=== PATIENT | male | born 1990 | race African-American/Black ===

== ENCOUNTER 2017-07-28 12:49 | Inpatient (IN) | payer MEDICAID ==
[2017-07-28] VITALS (15 sets, daily range): BP systolic 110–152; BP diastolic 58–106
[~2017-07-28] VITALS: Ht 176.5 cm; Wt 56.8 kg
[~2017-07-28 12:49] MED LIST: INSLAN SQ; INSLIS SQ
[2017-07-28] MEDS ORDERED: LIDOCAINE HCL/PF 1% 2ML VIAL ONE (13:00)
[2017-07-28] MEDS ORDERED: FAMOTIDINE 20MG/2ML VIAL IV STA (13:00)
[2017-07-28] MEDS ORDERED: INSULIN REGULAR (HUMULIN R) UD 100 UNITS/ML SYR IV ONE (13:00)
[2017-07-28] MEDS ORDERED: INSULIN REGULAR (DRIP) 100 UNITS in SODIUM CHLORIDE 0.9% 100 ML IV ONE ×3 (13:00→16:30)
[2017-07-28] MEDS ORDERED: MORPHINE SULFATE 4 MG/ML CPJ (NOT FOR IM USE) IV STA (13:00)
[2017-07-28] MEDS ORDERED: ONDANSETRON HCL 4MG/2ML VIAL IV STA (13:00)
[2017-07-28] MEDS ORDERED: SODIUM CHLORIDE 0.9% 1,000 ML IV ONE ×2 (13:00)
[2017-07-28 13:54] LABS: BG BASE EXCESS -10.7 mmol/L (-2.0-2.0); BG CARBOXYHEMOGLOBIN 0.4 % (0.5-1.5); BG DEOXYHEMOGLOBIN 3.9 % (0.0-5.0); BG HCO3 ACT 15.6 mmol/L (22.0-26.0); BG METHEMOGLOBIN 0.3 % (0.0-1.5); BG OXYGEN SATURATION 96.1 % (92.0-98.5); BG OXYHEMOGLOBIN 95.4 % (94.0-97.0); BG PCO2 36.4 mmHg (35.0-45.0); BG PH 7.249 (7.350-7.450); BG PO2 91.5 mmHg (75.0-100.0); BG SAMPLE SITE RIGHT RADIAL; BG VENT MODE ROOM AIR
[2017-07-28 14:08] LABS: BASOPHILS % 0.5 % (0.0-2.0); EOSINOPHILS % 0.1 % (0.0-5.0); HEMATOCRIT. 53.2 % (42.0-52.0); HEMOGLOBIN. 17.1 g/dL (14.0-18.0); LYMPHOCYTES % 28.6 % (20.0-50.0); MEAN CORPUSCULAR HEMOGLOBIN 24.4 pg (28.0-32.0); MEAN CORPUSCULAR VOLUME 75.8 fL (80.0-94.0); MEAN PLATELET VOLUME 9.7 fl (7.4-10.4); MONOCYTES % 4.2 % (2.0-8.0); NEUTROPHILS % 66.6 % (40.0-76.0); PLATELET 228 x1000/uL (130-400); RED BLOOD CELL COUNT 7.02 mill/uL (4.7-6.1); RED CELL DISTRIBUTION WIDTH 14.3 % (11.6-14.6)
[2017-07-28 14:15] LABS: INR 1.2; PROTHROMBIN TIME 12.5 sec (9.4-11.6)
[2017-07-28] MEDS ORDERED: SODIUM CHLORIDE 0.9% 1,000 ML IV SCH (14:19)
[2017-07-28 14:20] LABS: CARBON DIOXIDE 18 mEq/L (21-32); CHLORIDE 95 mEq/L (98-107)
[2017-07-28 14:27] LABS: ETHANOL BLOOD < 10 mg/dL; TROPONIN I < 0.02 ng/mL (0.00-0.04)
[2017-07-28 14:30] LABS: BETA HYDROXYBUTYRATE 6.9 mMol/L (0.0-0.3)
[2017-07-28] MEDS: INSULIN REGULAR (HUMULIN R) 300UNITS/3ML IV NR ×2 (15:17→15:18)
[2017-07-28] MEDS ORDERED: DEXTROSE 50% WATER 50ML SYRINGE IV PRN ×2 (16:30)
[2017-07-28] MEDS ORDERED: BLOOD SUGAR DIAGNOSTIC STRIP TEST SCH (16:30)
[2017-07-28] MEDS: MORPHINE SULFATE 4 MG/ML CPJ (NOT FOR IM USE) IV PRN ×2 (16:41→20:51)
[2017-07-28] MEDS: SODIUM CHLORIDE 0.9% 1,000 ML IV SCH ×2 (16:41→23:46)
[2017-07-28] MEDS ORDERED: INSULIN REGULAR (DRIP) 100 UNITS in SODIUM CHLORIDE 0.9% 100 ML IV SCH (17:00)
[2017-07-28] MEDS: BLOOD SUGAR DIAGNOSTIC STRIP TEST SCH ×7 (17:01→23:00)
[2017-07-28] MEDS: ONDANSETRON HCL 4MG/2ML VIAL IV PRN (18:44)
[2017-07-28 21:15] LABS: CARBON DIOXIDE 23 mEq/L (21-32); CHLORIDE 106 mEq/L (98-107)
[2017-07-29] VITALS (33 sets, daily range): BP systolic 113–157; BP diastolic 65–104
[2017-07-29] MEDS: ONDANSETRON HCL 4MG/2ML VIAL IV PRN ×3 (00:32→18:05)
[2017-07-29] MEDS: DEXT 5%/0.9% NACL 1,000 ML IV SCH ×2 (01:00→09:18)
[2017-07-29] MEDS: BLOOD SUGAR DIAGNOSTIC STRIP TEST SCH ×13 (01:00→21:17)
[2017-07-29] MEDS: MORPHINE SULFATE 4 MG/ML CPJ (NOT FOR IM USE) IV PRN ×2 (01:17→07:56)
[2017-07-29 02:19] LABS: CHLORIDE 108 mEq/L (98-107)
[2017-07-29 02:25] LABS: CARBON DIOXIDE 25 mEq/L (21-32)
[2017-07-29 07:50] LABS: BASOPHILS % 0.7 % (0.0-2.0); EOSINOPHILS % 0.1 % (0.0-5.0); HEMATOCRIT. 42.2 % (42.0-52.0); LYMPHOCYTES % 26.2 % (20.0-50.0); MEAN CORPUSCULAR HEMOGLOBIN 24.4 pg (28.0-32.0); MEAN CORPUSCULAR VOLUME 73.6 fL (80.0-94.0); MEAN PLATELET VOLUME 9.2 fl (7.4-10.4); MONOCYTES % 9.1 % (2.0-8.0); NEUTROPHILS % 63.9 % (40.0-76.0); PLATELET 225 x1000/uL (130-400); RED BLOOD CELL COUNT 5.73 mill/uL (4.7-6.1); RED CELL DISTRIBUTION WIDTH 14.4 % (11.6-14.6)
[2017-07-29 08:13] LABS: CARBON DIOXIDE 25 mEq/L (21-32); CHLORIDE 109 mEq/L (98-107)
[2017-07-29] MEDS: HYDROMORPHONE HCL/PF 2MG/ML CPJ IV PRN ×4 (10:44→23:37)
[2017-07-29 13:23] LABS: CARBON DIOXIDE 24 mEq/L (21-32); CHLORIDE 106 mEq/L (98-107)
[2017-07-29] MEDS ORDERED: DEXTROSE 50% WATER 50ML SYRINGE IV PRN (15:30)
[2017-07-29] MEDS: SODIUM CHLORIDE 0.9% 1,000 ML IV SCH (16:45)
[2017-07-29] MEDS: ENOXAPARIN 40MG/0.4ML SYR SUBCUT SCH ×2 (17:00→17:53)
[2017-07-29] MEDS: INSULIN LISPRO 100 UNITS/ML SUBCUT SCH ×2 (17:52→21:00)
[2017-07-29] MEDS: METOCLOPRAMIDE HCL 10MG/2ML VIAL IV PRN (21:20)
[2017-07-30] VITALS (24 sets, daily range): BP systolic 98–147; BP diastolic 58–85
[2017-07-30] MEDS: ONDANSETRON HCL 4MG/2ML VIAL IV PRN ×2 (02:14→10:42)
[2017-07-30] MEDS: HYDROMORPHONE HCL/PF 2MG/ML CPJ IV PRN ×5 (03:32→18:52)
[2017-07-30] MEDS: BLOOD SUGAR DIAGNOSTIC STRIP TEST SCH ×4 (05:41→21:34)
[2017-07-30] MEDS: INSULIN LISPRO 100 UNITS/ML SUBCUT SCH ×4 (05:46→21:00)
[2017-07-30] MEDS: METOCLOPRAMIDE HCL 10MG/2ML VIAL IV PRN (05:51)
[2017-07-30] MEDS: SODIUM CHLORIDE 0.9% 1,000 ML IV SCH ×4 (08:45→23:13)
[2017-07-30] MEDS: ENOXAPARIN 40MG/0.4ML SYR SUBCUT SCH ×2 (09:00→10:43)
[2017-07-30] MEDS: PANTOPRAZOLE SODIUM 40 MG/VIAL IV SCH ×2 (10:42→17:02)
[2017-07-30] MEDS: METOCLOPRAMIDE HCL 10MG/2ML VIAL IV SCH ×3 (12:43→23:52)
[2017-07-30] MEDS: INSULIN DETEMIR UD 100 UNITS/ML SYR SUBCUT SCH ×2 (14:15→22:20)
[2017-07-30 15:46] LABS: BASOPHILS % 0.4 % (0.0-2.0); HEMATOCRIT. 37.7 % (42.0-52.0); HEMOGLOBIN. 12.4 g/dL (14.0-18.0); LYMPHOCYTES % 20.2 % (20.0-50.0); MEAN CORPUSCULAR HEMOGLOBIN 24.5 pg (28.0-32.0); MEAN CORPUSCULAR VOLUME 74.5 fL (80.0-94.0); MEAN PLATELET VOLUME 9.3 fl (7.4-10.4); MONOCYTES % 6.6 % (2.0-8.0); NEUTROPHILS % 72.8 % (40.0-76.0); PLATELET 192 x1000/uL (130-400); RED BLOOD CELL COUNT 5.06 mill/uL (4.7-6.1); RED CELL DISTRIBUTION WIDTH 14.5 % (11.6-14.6)
[2017-07-30 15:48] LABS: CHLORIDE 103 mEq/L (98-107)
[2017-07-30 15:58] LABS: CARBON DIOXIDE 22 mEq/L (21-32)
[2017-07-31] VITALS (20 sets, daily range): BP systolic 127–153; BP diastolic 68–100
[2017-07-31] MEDS: HYDROMORPHONE HCL/PF 2MG/ML CPJ IV PRN ×3 (02:54→21:09)
[2017-07-31] MEDS: METOCLOPRAMIDE HCL 10MG/2ML VIAL IV SCH ×4 (05:14→21:08)
[2017-07-31 05:45] LABS: BASOPHILS % 0.5 % (0.0-2.0); EOSINOPHILS % 0.2 % (0.0-5.0); HEMOGLOBIN. 13.1 g/dL (14.0-18.0); LYMPHOCYTES % 39.7 % (20.0-50.0); MEAN CORPUSCULAR HEMOGLOBIN 24.6 pg (28.0-32.0); MEAN CORPUSCULAR VOLUME 72.9 fL (80.0-94.0); MEAN PLATELET VOLUME 9.6 fl (7.4-10.4); NEUTROPHILS % 50.6 % (40.0-76.0); PLATELET 211 x1000/uL (130-400); RED BLOOD CELL COUNT 5.35 mill/uL (4.7-6.1); RED CELL DISTRIBUTION WIDTH 14.6 % (11.6-14.6)
[2017-07-31 06:11] LABS: CARBON DIOXIDE 24 mEq/L (21-32); CHLORIDE 104 mEq/L (98-107)
[2017-07-31] MEDS: BLOOD SUGAR DIAGNOSTIC STRIP TEST SCH ×4 (06:24→21:17)
[2017-07-31] MEDS: INSULIN LISPRO 100 UNITS/ML SUBCUT SCH ×4 (06:25→22:46)
[2017-07-31] MEDS: SODIUM CHLORIDE 0.9% 1,000 ML IV SCH ×2 (06:33→17:19)
[2017-07-31] MEDS: ENOXAPARIN 40MG/0.4ML SYR SUBCUT SCH (08:51)
[2017-07-31] MEDS: PANTOPRAZOLE SODIUM 40 MG/VIAL IV SCH ×2 (08:55→17:13)
[2017-07-31] MEDS: INSULIN DETEMIR UD 100 UNITS/ML SYR SUBCUT SCH (10:00)
[2017-07-31] MEDS ORDERED: HYDROCODONE/ACETAMINOPHEN 5/325MG TABLET PO PRN (10:45)
[2017-07-31] MEDS ORDERED: LACTULOSE 20G/30ML UDC PO PRN (11:15)
[2017-07-31] MEDS: SENNOSIDES/DOCUSATE SOD 8.6/50MG TABLET PO SCH ×2 (11:43→17:13)
[2017-07-31] MEDS ORDERED: POTASSIUM CHLORIDE INJ 40 MEQ in DEXT 5% WATER 500 ML IV NR (12:00)
[2017-08-01] VITALS (7 sets, daily range): BP systolic 126–132; BP diastolic 81–95
[2017-08-01] MEDS: SODIUM CHLORIDE 0.9% 1,000 ML IV SCH ×2 (04:26→08:45)
[2017-08-01] MEDS: HYDROMORPHONE HCL/PF 2MG/ML CPJ IV PRN ×3 (04:27→13:21)
[2017-08-01] MEDS: INSULIN DETEMIR UD 100 UNITS/ML SYR SUBCUT SCH ×2 (04:34→10:06)
[2017-08-01] MEDS: METOCLOPRAMIDE HCL 10MG/2ML VIAL IV SCH ×2 (06:47→13:02)
[2017-08-01] MEDS: BLOOD SUGAR DIAGNOSTIC STRIP TEST SCH ×3 (06:52→17:25)
[2017-08-01] MEDS: INSULIN LISPRO 100 UNITS/ML SUBCUT SCH ×3 (08:38→17:48)
[2017-08-01] MEDS: SENNOSIDES/DOCUSATE SOD 8.6/50MG TABLET PO SCH ×2 (09:00→17:25)
[2017-08-01] MEDS: ENOXAPARIN 40MG/0.4ML SYR SUBCUT SCH (09:00)
[2017-08-01] MEDS: PANTOPRAZOLE SODIUM 40 MG/VIAL IV SCH ×2 (09:08→17:26)
[2017-08-01] MEDS ORDERED: METOCLOPRAMIDE HCL 5MG TABLET PO SCH (17:20)
[2017-08-01 18:52] LABS: CHLORIDE 99 mEq/L (98-107)
[2017-08-01 18:59] LABS: CARBON DIOXIDE 32 mEq/L (21-32)
[2017-09-01] MEDS ORDERED: HYDR-519 PO (16:18)
== END 2017-08-01 20:45 | disposition home or self-care (01) | DRG 420 ==
LOC: ER 13:28 → MICUNO 14:20 → EDBEDREQ 14:25 → EDBEDREQSVC 14:25 → EDBEDREQTM 14:25 → ENRESERV 15:26 → 6EST 07-31 20:35
PROVIDERS: ADMIT Internal Medicine; ATTEND Internal Medicine
DX: E10.10 Type 1 diabetes mellitus with ketoacidosis without coma (principal); K76.0 Fatty (change of) liver, not elsewhere classified; I10 Essential (primary) hypertension; E87.1 Hypo-osmolality and hyponatremia; K59.00 Constipation, unspecified; Z53.9 Procedure and treatment not carried out, unspecified reason; Z82.49 Family history of ischemic heart disease and other diseases of the circulatory system; Z79.4 Long term (current) use of insulin; Z83.3 Family history of diabetes mellitus
CPT/HCPCS: 36415; 36600; 71010; 76700; 80048; 80053; 82010; 82375; 82805; 82962; 83036; 83690; 83735; 83880; 84484; 85025; 85610; 93005; 96374; 96375; 96376; 99285; C9113; G0482; J1170; J1650; J1815; J2270; J2405; J2765; J3480; J3490; J7030; J7042; J7050; J7060; J8597

== ENCOUNTER 2017-08-17 22:54 | Inpatient (IN) | payer MEDICAID, OTHER ==
[~2017-08-17] VITALS: Ht 172.7 cm; Wt 65.8 kg
[2017-08-17] MEDS ORDERED: SODIUM CHLORIDE 0.9% 1,000 ML IV ONE ×3 (23:17)
[2017-08-17] MEDS ORDERED: MORPHINE SULFATE 4 MG/ML CPJ (NOT FOR IM USE) IV STA (23:17)
[2017-08-17] MEDS ORDERED: METOCLOPRAMIDE HCL 10MG/2ML VIAL IV STA (23:17)
[2017-08-17] MEDS ORDERED: ONDANSETRON HCL 4MG/2ML VIAL IV STA (23:17)
[2017-08-17] MEDS ORDERED: INSULIN REGULAR (DRIP) 100 UNITS in SODIUM CHLORIDE 0.9% 99 ML IV SCH (23:30)
[2017-08-17] MEDS ORDERED: MORPHINE SULFATE 10 MG/ML CPJ IV NR (23:30)
[2017-08-17 23:39] LABS: BASOPHILS % 0.8 % (0.0-2.0); EOSINOPHILS % 0.1 % (0.0-5.0); HEMATOCRIT. 44.7 % (42.0-52.0); HEMOGLOBIN. 14.9 g/dL (14.0-18.0); MEAN CORPUSCULAR VOLUME 74.9 fL (80.0-94.0); MEAN PLATELET VOLUME 8.7 fl (7.4-10.4); MONOCYTES % 10.8 % (2.0-8.0); NEUTROPHILS % 55.3 % (40.0-76.0); PLATELET 256 x1000/uL (130-400); RED BLOOD CELL COUNT 5.97 mill/uL (4.7-6.1); RED CELL DISTRIBUTION WIDTH 14.5 % (11.6-14.6)
[2017-08-17 23:50] LABS: CARBON DIOXIDE 24 mEq/L (21-32); CHLORIDE 90 mEq/L (98-107)
[2017-08-18 00:02] LABS: BETA HYDROXYBUTYRATE 5.2 mMol/L (0.0-0.3)
[2017-08-18 00:02] LABS: CLARITY URINE CLEAR (CLEAR); COLOR URINE YELLOW (YELLOW); GLUCOSE URINE 3+ (NEGATIVE); KETONES URINE 3+ (NEGATIVE); LEUKOCYTE ESTERASE URINE NEGATIVE (NEGATIVE); NITRITE URINE NEGATIVE (NEGATIVE); OCCULT BLOOD URINE NEGATIVE (NEGATIVE); PH URINE 5.5 (4.5-8.0); PROTEIN URINE NEGATIVE (NEGATIVE); SPECIFIC GRAVITY URINE 1.032 (1.005-1.030); UROBILINOGEN URINE 0.2 E.U./dL (0.2-1.0)
[2017-08-18 00:14] LABS: BG BASE EXCESS -5.8 mmol/L (-2.0-2.0); BG DEOXYHEMOGLOBIN 2.8 % (0.0-5.0); BG FRACTION INSPIRED OXYGEN 21; BG HCO3 ACT 19.4 mmol/L (22.0-26.0); BG METHEMOGLOBIN 0.1 % (0.0-1.5); BG OXYGEN SATURATION 97.2 % (92.0-98.5); BG OXYHEMOGLOBIN 96.1 % (94.0-97.0); BG PCO2 37.4 mmHg (35.0-45.0); BG PH 7.333 (7.350-7.450); BG PO2 94.9 mmHg (75.0-100.0); BG SAMPLE SITE RIGHT BRACHIAL; BG TOTAL HEMOGLOBIN 14.7 g/dL (12.0-18.0); BG VENT MODE ROOM AIR
[2017-08-18] MEDS ORDERED: DEXTROSE 50% WATER 50ML SYRINGE IV ONE (07:13)
[2017-08-18 09:12] LABS: CARBON DIOXIDE 27 mEq/L (21-32); CHLORIDE 104 mEq/L (98-107)
[2017-08-18 09:29] LABS: BETA HYDROXYBUTYRATE 0.9 mMol/L (0.0-0.3)
[2017-08-18] MEDS ORDERED: HYDROCODONE/ACETAMINOPHEN 5/325MG TABLET PO PRN (12:30)
[2017-08-18] MEDS ORDERED: ACETAMINOPHEN 325MG TABLET PO PRN (12:30)
[2017-08-18] MEDS ORDERED: ONDANSETRON HCL 4MG/2ML VIAL IV PRN (12:30)
[2017-08-18] MEDS ORDERED: CLONIDINE 0.1MG TABLET PO PRN (12:30)
[2017-08-18 12:48] VITALS: BP 134/86
[2017-08-18] MEDS ORDERED: DEXT 5%/0.45% NACL 1000ML 1,000 ML IV SCH (13:11)
[2017-08-18 15:23] VITALS: BP 134/86
[2017-08-18 16:00] VITALS: BP 123/62
[2017-08-18] MEDS ORDERED: INSULIN DETEMIR UD 100 UNITS/ML SYR SUBCUT NR (17:00)
[2017-08-18] MEDS: MORPHINE SULFATE 10 MG/ML CPJ IV PRN ×2 (17:38→21:50)
[2017-08-18] MEDS ORDERED: INSULIN LISPRO 100 UNITS/ML SUBCUT NR (18:30)
[2017-08-18] MEDS ORDERED: DEXTROSE 50% WATER 50ML SYRINGE IV PRN (18:30)
[2017-08-18 20:00] VITALS: BP 120/80
[2017-08-18 20:27] LABS: CHLORIDE 97 mEq/L (98-107)
[2017-08-18 20:32] LABS: CARBON DIOXIDE 23 mEq/L (21-32)
[2017-08-18] MEDS: BLOOD SUGAR DIAGNOSTIC STRIP TEST SCH (21:50)
[2017-08-18] MEDS: INSULIN LISPRO 100 UNITS/ML SUBCUT SCH (21:56)
[2017-08-19] VITALS: BP 121/73
[2017-08-19] MEDS: MORPHINE SULFATE 10 MG/ML CPJ IV PRN ×2 (01:41→06:53)
[2017-08-19 04:00] VITALS: BP 134/92
[2017-08-19] MEDS: BLOOD SUGAR DIAGNOSTIC STRIP TEST SCH ×2 (06:30→12:20)
[2017-08-19 06:44] LABS: BASOPHILS % 0.9 % (0.0-2.0); EOSINOPHILS % 1.6 % (0.0-5.0); HEMATOCRIT. 41.3 % (42.0-52.0); HEMOGLOBIN. 13.9 g/dL (14.0-18.0); LYMPHOCYTES % 39.7 % (20.0-50.0); MEAN CORPUSCULAR HEMOGLOBIN 24.8 pg (28.0-32.0); MEAN CORPUSCULAR VOLUME 73.3 fL (80.0-94.0); MEAN PLATELET VOLUME 8.7 fl (7.4-10.4); MONOCYTES % 8.4 % (2.0-8.0); NEUTROPHILS % 49.4 % (40.0-76.0); PLATELET 279 x1000/uL (130-400); RED BLOOD CELL COUNT 5.63 mill/uL (4.7-6.1); RED CELL DISTRIBUTION WIDTH 14.4 % (11.6-14.6)
[2017-08-19 07:11] LABS: CHLORIDE 96 mEq/L (98-107)
[2017-08-19 07:16] LABS: CARBON DIOXIDE 26 mEq/L (21-32)
[2017-08-19 07:28] VITALS: BP 122/76
[2017-08-19] MEDS: INSULIN LISPRO 100 UNITS/ML SUBCUT SCH ×2 (08:58→13:51)
[2017-08-19] MEDS ORDERED: INSULIN DETEMIR UD 100 UNITS/ML SYR SUBCUT SCH (10:00)
[2017-08-19 13:20] VITALS: BP 125/89
[2017-09-01] MEDS ORDERED: HYDR-519 PO (16:18)
== END 2017-08-19 14:15 | disposition home or self-care (01) | DRG 420 ==
LOC: ER 23:09 → EDBEDREQ 08-18 00:38 → ENRESERV 08-18 09:14 → CANRESERV 08-18 09:14 → EDBEDREQSVC 08-18 09:23 → ENRESERV 08-18 10:20 → 6EST 08-18 11:10 → 6WST 08-18 18:15
PROVIDERS: ADMIT Hospitalist; ATTEND Hospitalist
DX: E11.10 Type 2 diabetes mellitus with ketoacidosis without coma (principal); E87.1 Hypo-osmolality and hyponatremia; Z79.4 Long term (current) use of insulin
CPT/HCPCS: 36415; 36600; 80048; 80053; 81001; 81003; 82010; 82375; 82805; 82962; 83690; 85025; 96361; 96365; 96375; 96376; 99285; J1815; J2270; J2405; J2765; J7030; J7042; J7050; J7070

== ENCOUNTER 2017-09-08 01:19 | Emergency (ER) | payer OTHER ==
[~2017-09-08] VITALS: Ht 175.3 cm; Wt 67.0 kg
[~2017-09-08 01:19] MED LIST changes: +HYDR-519 PO
[2017-09-08] MEDS ORDERED: SODIUM CHLORIDE 0.9% 1,000 ML IV ONE (02:50)
[2017-09-08 03:04] LABS: BASOPHILS % 1.1 % (0.0-2.0); EOSINOPHILS % 0.3 % (0.0-5.0); HEMATOCRIT. 40.4 % (42.0-52.0); HEMOGLOBIN. 13.1 g/dL (14.0-18.0); LYMPHOCYTES % 36.5 % (20.0-50.0); MEAN CORPUSCULAR HEMOGLOBIN 25.6 pg (28.0-32.0); MEAN CORPUSCULAR VOLUME 79.1 fL (80.0-94.0); MEAN PLATELET VOLUME 9.5 fl (7.4-10.4); MONOCYTES % 11.8 % (2.0-8.0); NEUTROPHILS % 50.3 % (40.0-76.0); PLATELET 244 x1000/uL (130-400); RED BLOOD CELL COUNT 5.11 mill/uL (4.7-6.1)
[2017-09-08 03:17] LABS: CARBON DIOXIDE 25 mEq/L (21-32); CHLORIDE 101 mEq/L (98-107); TROPONIN I < 0.02 ng/mL (0.00-0.04)
[2017-09-08] MEDS ORDERED: INSULIN REGULAR (HUMULIN R) 300UNITS/3ML SUBCUT ONE (04:45)
[2017-09-08 05:27] VITALS: BP 128/70
== END 2017-09-08 05:34 | disposition home or self-care (01) ==
LOC: ER 01:20
DX: M94.0 Chondrocostal junction syndrome [Tietze] (principal); F12.10 Cannabis abuse, uncomplicated; E11.9 Type 2 diabetes mellitus without complications; Z79.4 Long term (current) use of insulin
CPT/HCPCS: 36415; 71010; 80053; 82962; 84484; 85025; 85379; 93005; 96360; 96361; 96372; 99285; J1815; J7030; Z7610

== ENCOUNTER 2017-09-13 13:00 | Observation (INO) | payer OTHER ==
[2017-09-13] VITALS (15 sets, daily range): BP systolic 142–173; BP diastolic 91–104
[~2017-09-13] VITALS: Ht 175.3 cm; Wt 58.1 kg
[2017-09-13] MEDS ORDERED: ONDANSETRON HCL 4MG/2ML VIAL IV STA (13:55)
[2017-09-13] MEDS ORDERED: MORPHINE SULFATE 4 MG/ML CPJ (NOT FOR IM USE) IV STA (13:55)
[2017-09-13] MEDS ORDERED: SODIUM CHLORIDE 0.9% 1000ML BAG (SEPSIS BOLUS) IV ONE (14:00)
[2017-09-13] MEDS ORDERED: INSULIN REGULAR (HUMULIN R) 300UNITS/3ML SUBCUT ONE (14:00)
[2017-09-13 14:27] LABS: BASOPHILS % 0.3 % (0.0-2.0); HEMATOCRIT. 50.7 % (42.0-52.0); LYMPHOCYTES % 26.3 % (20.0-50.0); MEAN CORPUSCULAR HEMOGLOBIN 25.7 pg (28.0-32.0); MEAN CORPUSCULAR VOLUME 81.1 fL (80.0-94.0); MEAN PLATELET VOLUME 9.2 fl (7.4-10.4); MONOCYTES % 6.1 % (2.0-8.0); NEUTROPHILS % 67.3 % (40.0-76.0); PLATELET 285 x1000/uL (130-400); RED BLOOD CELL COUNT 6.25 mill/uL (4.7-6.1); RED CELL DISTRIBUTION WIDTH 17.3 % (11.6-14.6)
[2017-09-13 14:36] LABS: INR 1.1; PARTIAL THROMBOPLASTIN TIME 20.5 sec (23.4-31.0); PROTHROMBIN TIME 11.6 sec (9.4-11.6)
[2017-09-13 14:45] LABS: CARBON DIOXIDE 16 mEq/L (21-32); CHLORIDE 95 mEq/L (98-107); TROPONIN I < 0.02 ng/mL (0.00-0.04)
[2017-09-13 14:46] LABS: BETA HYDROXYBUTYRATE 6.9 mMol/L (0.0-0.3)
[2017-09-13] MEDS ORDERED: KCL 20MEQ/100ML PREMIX 100 ML IV ONE (15:00)
[2017-09-13] MEDS ORDERED: INSULIN REGULAR (DRIP) 100 UNITS in SODIUM CHLORIDE 0.9% 100 ML IV ONE (15:00)
[2017-09-13] MEDS ORDERED: INSULIN REGULAR (HUMULIN R) UD 100 UNITS/ML SYR IV ONE (15:00)
[2017-09-13 15:28] LABS: BG BASE EXCESS -12.2 mmol/L (-2.0-2.0); BG CARBOXYHEMOGLOBIN 1.3 % (0.5-1.5); BG DEOXYHEMOGLOBIN 3.1 % (0.0-5.0); BG FRACTION INSPIRED OXYGEN 21; BG HCO3 ACT 14.4 mmol/L (22.0-26.0); BG METHEMOGLOBIN 0.5 % (0.0-1.5); BG OXYGEN SATURATION 96.8 % (92.0-98.5); BG OXYHEMOGLOBIN 95.1 % (94.0-97.0); BG PCO2 35.6 mmHg (35.0-45.0); BG PH 7.226 (7.350-7.450); BG PO2 97.6 mmHg (75.0-100.0); BG SAMPLE SITE RIGHT BRACHIAL; BG TOTAL HEMOGLOBIN 15.5 g/dL (12.0-18.0); BG VENT MODE ROOM AIR
[2017-09-13] MEDS ORDERED: MORPHINE SULFATE 2 MG/ML CPJ (NOT FOR IM USE) IV SCH (16:20)
[2017-09-13] MEDS ORDERED: INSULIN REGULAR (DRIP) 100 UNITS in SODIUM CHLORIDE 0.9% 100 ML IV SCH (16:30)
[2017-09-13] MEDS ORDERED: IPRATROPIUM BROMIDE (0.02%) 0.5MG/2.5ML NEB HHN PRN (17:15)
[2017-09-13] MEDS ORDERED: ONDANSETRON HCL 4MG/2ML VIAL IV PRN (17:15)
[2017-09-13] MEDS ORDERED: INSULIN REGULAR (DRIP) 100 UNITS in SODIUM CHLORIDE 0.9% 99 ML IV SCH (19:03)
[2017-09-13] MEDS ORDERED: ACETAMINOPHEN 325MG TABLET PO PRN (19:15)
[2017-09-13] MEDS ORDERED: DEXTROSE 50% WATER 50ML SYRINGE IV PRN ×2 (19:15)
[2017-09-13] MEDS ORDERED: CLONIDINE 0.2MG TABLET PO PRN (19:15)
[2017-09-13] MEDS: BLOOD SUGAR DIAGNOSTIC STRIP TEST SCH ×5 (19:38→23:57)
[2017-09-13] MEDS: ONDANSETRON HCL 4MG/2ML VIAL IV PRN (19:55)
[2017-09-13] MEDS: MORPHINE SULFATE 2 MG/ML CPJ (NOT FOR IM USE) IV PRN (19:56)
[2017-09-13] MEDS: DEXT 5%/0.45% NACL 1000ML 1,000 ML IV SCH (20:05)
[2017-09-13] MEDS: HYDROCODONE/ACETAMINOPHEN 10/325MG TABLET PO PRN (22:29)
[2017-09-14] VITALS (56 sets, daily range): BP systolic 110–183; BP diastolic 66–124
[2017-09-14] MEDS: BLOOD SUGAR DIAGNOSTIC STRIP TEST SCH ×9 (00:14→21:19)
[2017-09-14] MEDS: DEXT 5%/0.45% NACL 1000ML 1,000 ML IV SCH (04:23)
[2017-09-14] MEDS: ONDANSETRON HCL 4MG/2ML VIAL IV PRN ×3 (04:35→17:31)
[2017-09-14] MEDS: MORPHINE SULFATE 2 MG/ML CPJ (NOT FOR IM USE) IV PRN ×3 (04:36→21:24)
[2017-09-14 05:15] LABS: BASOPHILS % 0.3 % (0.0-2.0); HEMATOCRIT. 40.8 % (42.0-52.0); HEMOGLOBIN. 13.7 g/dL (14.0-18.0); LYMPHOCYTES % 12.8 % (20.0-50.0); MEAN CORPUSCULAR HEMOGLOBIN 25.7 pg (28.0-32.0); MEAN CORPUSCULAR VOLUME 76.6 fL (80.0-94.0); MEAN PLATELET VOLUME 8.4 fl (7.4-10.4); MONOCYTES % 4.3 % (2.0-8.0); NEUTROPHILS % 82.6 % (40.0-76.0); PLATELET 280 x1000/uL (130-400); RED BLOOD CELL COUNT 5.33 mill/uL (4.7-6.1); RED CELL DISTRIBUTION WIDTH 16.8 % (11.6-14.6)
[2017-09-14 05:43] LABS: CARBON DIOXIDE 26 mEq/L (21-32)
[2017-09-14 06:16] LABS: CHLORIDE 110 mEq/L (98-107)
[2017-09-14 07:20] LABS: BG BASE EXCESS -0.5 mmol/L (-2.0-2.0); BG DEOXYHEMOGLOBIN 2.6 % (0.0-5.0); BG FRACTION INSPIRED OXYGEN 21; BG METHEMOGLOBIN 0.4 % (0.0-1.5); BG OXYGEN SATURATION 97.4 % (92.0-98.5); BG PCO2 44.3 mmHg (35.0-45.0); BG PO2 92.7 mmHg (75.0-100.0); BG SAMPLE SITE RIGHT BRACHIAL; BG TOTAL HEMOGLOBIN 14.1 g/dL (12.0-18.0); BG VENT MODE ROOM AIR
[2017-09-14] MEDS: ENOXAPARIN 40MG/0.4ML SYR SUBCUT SCH ×2 (08:36→08:47)
[2017-09-14] MEDS: PANTOPRAZOLE SODIUM 40 MG/VIAL IV SCH (08:37)
[2017-09-14] MEDS: SODIUM CHLORIDE 0.45% 1,000 ML IV SCH ×2 (08:37→17:31)
[2017-09-14] MEDS: INSULIN DETEMIR UD 100 UNITS/ML SYR SUBCUT SCH (08:55)
[2017-09-14] MEDS: INSULIN LISPRO 100 UNITS/ML SUBCUT SCH ×3 (12:27→21:00)
[2017-09-14] MEDS: HYDROCODONE/ACETAMINOPHEN 10/325MG TABLET PO PRN ×2 (12:34→17:40)
[2017-09-15] VITALS: BP 110/71
[2017-09-15 04:00] VITALS: BP 119/79
[2017-09-15 05:49] LABS: BASOPHILS % 0.5 % (0.0-2.0); EOSINOPHILS % 0.2 % (0.0-5.0); HEMATOCRIT. 39.6 % (42.0-52.0); LYMPHOCYTES % 33.9 % (20.0-50.0); MEAN CORPUSCULAR HEMOGLOBIN 25.8 pg (28.0-32.0); MEAN CORPUSCULAR VOLUME 78.4 fL (80.0-94.0); MEAN PLATELET VOLUME 8.3 fl (7.4-10.4); MONOCYTES % 6.7 % (2.0-8.0); NEUTROPHILS % 58.7 % (40.0-76.0); PLATELET 234 x1000/uL (130-400); RED BLOOD CELL COUNT 5.05 mill/uL (4.7-6.1); RED CELL DISTRIBUTION WIDTH 16.9 % (11.6-14.6)
[2017-09-15] MEDS: SODIUM CHLORIDE 0.45% 1,000 ML IV SCH (06:36)
[2017-09-15] MEDS: INSULIN LISPRO 100 UNITS/ML SUBCUT SCH ×2 (06:37→11:57)
[2017-09-15] MEDS: BLOOD SUGAR DIAGNOSTIC STRIP TEST SCH ×2 (06:37→11:57)
[2017-09-15 06:52] LABS: CARBON DIOXIDE 27 mEq/L (21-32); CHLORIDE 106 mEq/L (98-107)
[2017-09-15] MEDS: ENOXAPARIN 40MG/0.4ML SYR SUBCUT SCH (09:00)
[2017-09-15] MEDS: PANTOPRAZOLE SODIUM 40 MG/VIAL IV SCH (09:00)
[2017-09-15] MEDS: MORPHINE SULFATE 2 MG/ML CPJ (NOT FOR IM USE) IV PRN (09:06)
[2017-09-15] MEDS: INSULIN DETEMIR UD 100 UNITS/ML SYR SUBCUT SCH (09:10)
[2017-09-15 09:43] VITALS: BP 110/75
== END 2017-09-15 15:10 | disposition home or self-care (01) ==
LOC: ER 13:17 → ENRESERV 14:16 → INTOOBSV 14:58 → MICUSO 14:58 → EDBEDREQTM 14:59 → EDBEDREQ 14:59 → 5WST 09-14 14:46
PROVIDERS: ADMIT Internal Medicine; ATTEND Internal Medicine
DX: E10.10 Type 1 diabetes mellitus with ketoacidosis without coma (principal); I10 Essential (primary) hypertension; I47.1 Supraventricular tachycardia; E86.0 Dehydration; R11.2 Nausea with vomiting, unspecified; F17.210 Nicotine dependence, cigarettes, uncomplicated; Z91.19 Patient's noncompliance with other medical treatment and regimen
CPT/HCPCS: 36415; 36600; 71010; 74176; 80048; 80053; 82010; 82375; 82805; 82962; 84484; 85025; 85610; 85730; 86850; 86900; 86901; 93005; 96361; 96365; 96366; 96368; 96372; 96375; 96376; 99285; C9113; G0378; J1650; J1815; J2270; J2405; J3480; J7030; J7050

== ENCOUNTER 2018-03-15 20:12 | Inpatient (IN) | payer MEDICAID ==
[~2018-03-15] VITALS: Ht 152.4 cm; Wt 62.4 kg
[~2018-03-15 20:12] MED LIST changes: +HYDR-4001 PO; -HYDR-519 PO; -INSLAN SQ; -INSLIS SQ; +INSLIS SUBCUT; +LANTUSUD SUBCUT; +METO-293 PO
[2018-03-15] MEDS ORDERED: ONDANSETRON HCL 4MG/2ML VIAL IV STA (21:44)
[2018-03-15] MEDS ORDERED: SODIUM CHLORIDE 0.9% 1,000 ML IV ONE (21:44)
[2018-03-15] MEDS ORDERED: FAMOTIDINE 20MG/2ML VIAL IV STA (21:44)
[2018-03-15] MEDS ORDERED: MORPHINE SULFATE 2 MG/ML CPJ (NOT FOR IM USE) IV ONE (22:45)
[2018-03-15 22:51] LABS: BASOPHILS % 1.1 % (0.0-2.0); EOSINOPHILS % 0.1 % (0.0-5.0); HEMATOCRIT. 42.8 % (42.0-52.0); LYMPHOCYTES % 15.2 % (20.0-50.0); MEAN CORPUSCULAR HEMOGLOBIN 24.2 pg (28.0-32.0); MEAN CORPUSCULAR VOLUME 74.2 fL (80.0-94.0); MEAN PLATELET VOLUME 9.2 fl (7.4-10.4); MONOCYTES % 6.8 % (2.0-8.0); NEUTROPHILS % 76.8 % (40.0-76.0); PLATELET 178 x1000/uL (130-400); RED BLOOD CELL COUNT 5.77 mill/uL (4.7-6.1); RED CELL DISTRIBUTION WIDTH 15.8 % (11.6-14.6)
[2018-03-15 22:53] LABS: CHLORIDE 103 mEq/L (98-107)
[2018-03-15 22:54] LABS: INR 1.2; PROTHROMBIN TIME 12.1 sec (9.4-11.6)
[2018-03-15] MEDS ORDERED: MORPHINE SULFATE 4 MG/ML CPJ (NOT FOR IM USE) IV NR (23:00)
[2018-03-16] VITALS (23 sets, daily range): BP systolic 99–165; BP diastolic 44–98
[2018-03-16] MEDS ORDERED: MORPHINE SULFATE 2 MG/ML CPJ (NOT FOR IM USE) IV ONE (02:00)
[2018-03-16] MEDS ORDERED: MORPHINE SULFATE 4 MG/ML CPJ (NOT FOR IM USE) IV NR (02:00)
[2018-03-16] MEDS ORDERED: METOCLOPRAMIDE HCL 10MG/2ML VIAL IV ONE (03:15)
[2018-03-16 03:33] LABS: CLARITY URINE CLEAR (CLEAR); COLOR URINE YELLOW (YELLOW); KETONES URINE 4+ (NEGATIVE); LEUKOCYTE ESTERASE URINE NEGATIVE (NEGATIVE); NITRITE URINE NEGATIVE (NEGATIVE); OCCULT BLOOD URINE NEGATIVE (NEGATIVE); PH URINE 5.5 (4.5-8.0); PROTEIN URINE NEGATIVE (NEGATIVE); SPECIFIC GRAVITY URINE 1.039 (1.005-1.030); UROBILINOGEN URINE 0.2 E.U./dL (0.2-1.0)
[2018-03-16 03:47] LABS: *AMPHETAMINES SCREEN URINE NEGATIVE (NEGATIVE); *BARBITURATES SCREEN URINE NEGATIVE (NEGATIVE); *BENZODIAZEPINES SCREEN URINE NEGATIVE (NEGATIVE); *COCAINE SCREEN URINE NEGATIVE (NEGATIVE)
[2018-03-16 03:48] LABS: CANNABINOID URINE SCREEN PRESUMTIVE POSITIVE (NEGATIVE); METHADONE URINE SCREEN NEGATIVE (NEGATIVE); OPIATES URINE SCREEN PRESUMTIVE POSITIVE (NEGATIVE); PHENCYCLIDINE URINE SCREEN NEGATIVE (NEGATIVE)
[2018-03-16] MEDS ORDERED: INSULIN REGULAR (HUMULIN R) 300UNITS/3ML IV NR (04:00)
[2018-03-16] MEDS ORDERED: KCL 20MEQ/100ML PREMIX 100 ML IV ONE (04:15)
[2018-03-16] MEDS: SODIUM CHLORIDE 0.9% 1000ML BAG (SEPSIS BOLUS) IV NR ×3 (04:26→06:31)
[2018-03-16] MEDS ORDERED: SODIUM CHLORIDE 0.9% 1000ML BAG (SEPSIS BOLUS) IV ONE (06:15)
[2018-03-16] MEDS ORDERED: MORPHINE SULFATE 10 MG/ML CPJ IV ONE (06:15)
[2018-03-16] MEDS ORDERED: MORPHINE SULFATE 4 MG/ML CPJ (NOT FOR IM USE) IV ONE ×2 (06:15→07:30)
[2018-03-16 07:13] LABS: CHLORIDE 103 mEq/L (98-107)
[2018-03-16] MEDS ORDERED: SODIUM CHLORIDE 0.9% 1,000 ML IV ONE (07:15)
[2018-03-16] MEDS ORDERED: INSULIN REGULAR (HUMULIN R) 300UNITS/3ML SUBCUT NR (08:45)
[2018-03-16] MEDS ORDERED: INSULIN REGULAR (DRIP) 100 UNITS in SODIUM CHLORIDE 0.9% 100 ML IV ONE ×2 (08:45→09:00)
[2018-03-16] MEDS ORDERED: MORPHINE SULFATE 2 MG/ML CPJ (NOT FOR IM USE) IV PRN (09:15)
[2018-03-16] MEDS: SODIUM CHLORIDE 0.9% 1,000 ML IV SCH ×4 (09:15→23:34)
[2018-03-16] MEDS ORDERED: MAGNESIUM 2 G PREMIX 50 ML IV NR (09:58)
[2018-03-16 10:23] LABS: CHLORIDE 105 mEq/L (98-107)
[2018-03-16] MEDS ORDERED: SODIUM POLYSTYRENE SULFONATE 15 G/60 ML BOT PO NR (11:00)
[2018-03-16] MEDS ORDERED: SODIUM BICARBONATE 8.4% 1 MEQ/ML 50ML SYR IV NR (11:00)
[2018-03-16] MEDS: MORPHINE SULFATE 4 MG/ML CPJ (NOT FOR IM USE) IV PRN ×3 (13:36→22:37)
[2018-03-16] MEDS: ONDANSETRON HCL 4MG/2ML VIAL IV PRN (13:36)
[2018-03-16] MEDS: PANTOPRAZOLE SODIUM 40 MG/VIAL IV SCH (15:11)
[2018-03-16 17:35] LABS: CHLORIDE 113 mEq/L (98-107)
[2018-03-16] MEDS: BLOOD SUGAR DIAGNOSTIC STRIP TEST SCH ×2 (22:00→23:00)
[2018-03-16 22:52] LABS: CHLORIDE 114 mEq/L (98-107)
[2018-03-17] VITALS (19 sets, daily range): BP systolic 113–177; BP diastolic 63–111
[2018-03-17] MEDS: BLOOD SUGAR DIAGNOSTIC STRIP TEST SCH ×14 (01:00→23:05)
[2018-03-17 01:47] LABS: CHLORIDE 115 mEq/L (98-107)
[2018-03-17] MEDS: SODIUM CHLORIDE 0.9% 1,000 ML IV SCH ×3 (04:53→20:16)
[2018-03-17 06:45] LABS: CHLORIDE 110 mEq/L (98-107)
[2018-03-17] MEDS: MORPHINE SULFATE 4 MG/ML CPJ (NOT FOR IM USE) IV PRN ×3 (08:21→19:41)
[2018-03-17 08:42] LABS: BASOPHILS % 0.9 % (0.0-2.0); HEMATOCRIT. 41.6 % (42.0-52.0); HEMOGLOBIN. 13.4 g/dL (14.0-18.0); LYMPHOCYTES % 7.4 % (20.0-50.0); MEAN CORPUSCULAR HEMOGLOBIN 24.1 pg (28.0-32.0); MEAN PLATELET VOLUME 8.7 fl (7.4-10.4); NEUTROPHILS % 86.7 % (40.0-76.0); PLATELET 223 x1000/uL (130-400); RED BLOOD CELL COUNT 5.55 mill/uL (4.7-6.1); RED CELL DISTRIBUTION WIDTH 16.2 % (11.6-14.6)
[2018-03-17 08:54] LABS: CHLORIDE 108 mEq/L (98-107)
[2018-03-17 13:06] LABS: CHLORIDE 109 mEq/L (98-107)
[2018-03-17] MEDS ORDERED: DEXTROSE 50% WATER 50ML SYRINGE IV NR (15:15)
[2018-03-17 16:55] LABS: CHLORIDE 108 mEq/L (98-107)
[2018-03-17] MEDS ORDERED: DEXTROSE 50% WATER 50ML SYRINGE IV PRN ×2 (19:30)
[2018-03-17] MEDS ORDERED: INSULIN REGULAR (DRIP) 100 UNITS in SODIUM CHLORIDE 0.9% 100 ML IV SCH (20:00)
[2018-03-17] MEDS ORDERED: BLOOD SUGAR DIAGNOSTIC STRIP TEST SCH (20:00)
[2018-03-17 21:15] LABS: CHLORIDE 106 mEq/L (98-107)
[2018-03-18] VITALS (42 sets, daily range): BP systolic 128–186; BP diastolic 65–131
[2018-03-18] MEDS: MORPHINE SULFATE 4 MG/ML CPJ (NOT FOR IM USE) IV PRN ×5 (00:28→21:16)
[2018-03-18 00:45] LABS: CHLORIDE 105 mEq/L (98-107)
[2018-03-18] MEDS: BLOOD SUGAR DIAGNOSTIC STRIP TEST SCH ×11 (01:00→20:51)
[2018-03-18] MEDS: SODIUM CHLORIDE 0.9% 1,000 ML IV SCH (01:01)
[2018-03-18 05:26] LABS: BASOPHILS % 0.7 % (0.0-2.0); HEMATOCRIT. 40.7 % (42.0-52.0); HEMOGLOBIN. 13.4 g/dL (14.0-18.0); LYMPHOCYTES % 12.4 % (20.0-50.0); MEAN CORPUSCULAR HEMOGLOBIN 24.4 pg (28.0-32.0); MEAN CORPUSCULAR VOLUME 74.1 fL (80.0-94.0); MEAN PLATELET VOLUME 8.7 fl (7.4-10.4); MONOCYTES % 7.7 % (2.0-8.0); NEUTROPHILS % 79.2 % (40.0-76.0); PLATELET 205 x1000/uL (130-400); RED CELL DISTRIBUTION WIDTH 16.1 % (11.6-14.6)
[2018-03-18] MEDS ORDERED: POTASSIUM CHLORIDE 20MEQ TABLET SR PO NR (05:30)
[2018-03-18] MEDS ORDERED: SODIUM CHLORIDE 0.45% 1,000 ML IV SCH (05:30)
[2018-03-18 05:42] LABS: CHLORIDE 106 mEq/L (98-107)
[2018-03-18 07:53] LABS: BG BASE EXCESS -5.7 mmol/L (-2.0-2.0); BG CARBOXYHEMOGLOBIN 0.5 % (0.5-1.5); BG DEOXYHEMOGLOBIN 3.6 % (0.0-5.0); BG HCO3 ACT 18.8 mmol/L (22.0-26.0); BG METHEMOGLOBIN 0.3 % (0.0-1.5); BG OXYGEN SATURATION 96.4 % (92.0-98.5); BG OXYHEMOGLOBIN 95.6 % (94.0-97.0); BG PCO2 33.8 mmHg (35.0-45.0); BG PH 7.363 (7.350-7.450); BG PO2 79.6 mmHg (75.0-100.0); BG SAMPLE SITE RIGHT RADIAL; BG TOTAL HEMOGLOBIN 13.8 g/dL (12.0-18.0); BG VENT MODE ROOM AIR
[2018-03-18] MEDS: ONDANSETRON HCL 4MG/2ML VIAL IV PRN ×2 (08:10→15:13)
[2018-03-18] MEDS: PANTOPRAZOLE SODIUM 40 MG/VIAL IV SCH (08:10)
[2018-03-18] MEDS ORDERED: SODIUM CHLORIDE 0.45% IV SCH (08:51)
[2018-03-18] MEDS ORDERED: POTASSIUM ACETATE IV SCH (08:51)
[2018-03-18] MEDS ORDERED: BLOOD SUGAR DIAGNOSTIC STRIP TEST SCH (10:00)
[2018-03-18] MEDS ORDERED: DEXTROSE 50% WATER 50ML SYRINGE IV PRN (10:00)
[2018-03-18] MEDS: DEXT IV SCH ×2 (11:19→17:57)
[2018-03-18] MEDS: NACL IV SCH ×2 (11:19→17:57)
[2018-03-18] MEDS: POTASSIUM ACETATE IV SCH ×2 (11:19→17:57)
[2018-03-18] MEDS: INSULIN LISPRO 100 UNITS/ML SUBCUT SCH ×3 (12:52→21:15)
[2018-03-18] MEDS ORDERED: INSULIN GLARGINE UD 100 UNITS/ML SYR SUBCUT NR (13:30)
[2018-03-18] MEDS ORDERED: INSULIN GLARGINE UD 100 UNITS/ML SYR SUBCUT SCH (22:00)
[2018-03-18 23:24] LABS: CHLORIDE 100 mEq/L (98-107)
[2018-03-19] VITALS (38 sets, daily range): BP systolic 108–173; BP diastolic 58–116
[2018-03-19] MEDS: POTASSIUM ACETATE IV SCH ×4 (00:44→21:14)
[2018-03-19] MEDS: NACL IV SCH ×4 (00:44→21:14)
[2018-03-19] MEDS: DEXT IV SCH ×4 (00:44→21:14)
[2018-03-19] MEDS: ONDANSETRON HCL 4MG/2ML VIAL IV PRN ×2 (00:44→12:18)
[2018-03-19] MEDS: MORPHINE SULFATE 4 MG/ML CPJ (NOT FOR IM USE) IV PRN ×3 (04:29→20:03)
[2018-03-19 05:40] LABS: BASOPHILS % 0.4 % (0.0-2.0); HEMOGLOBIN. 14.7 g/dL (14.0-18.0); LYMPHOCYTES % 12.6 % (20.0-50.0); MEAN CORPUSCULAR HEMOGLOBIN 24.5 pg (28.0-32.0); MEAN CORPUSCULAR VOLUME 75.1 fL (80.0-94.0); MEAN PLATELET VOLUME 8.9 fl (7.4-10.4); MONOCYTES % 10.2 % (2.0-8.0); NEUTROPHILS % 76.8 % (40.0-76.0); PLATELET 223 x1000/uL (130-400); RED BLOOD CELL COUNT 5.99 mill/uL (4.7-6.1); RED CELL DISTRIBUTION WIDTH 16.1 % (11.6-14.6)
[2018-03-19 05:54] LABS: CHLORIDE 96 mEq/L (98-107)
[2018-03-19] MEDS: BLOOD SUGAR DIAGNOSTIC STRIP TEST SCH ×13 (07:50→23:00)
[2018-03-19 08:21] LABS: PHOSPHORUS 1.8 mg/dL (2.5-4.9)
[2018-03-19] MEDS: INSULIN LISPRO 100 UNITS/ML SUBCUT SCH (09:27)
[2018-03-19] MEDS: PANTOPRAZOLE SODIUM 40 MG/VIAL IV SCH (09:27)
[2018-03-19] MEDS ORDERED: POTASSIUM-SODIUM PHOSPHATE POWDER PACKET PO NR (09:45)
[2018-03-19] MEDS ORDERED: DEXTROSE 50% WATER 50ML SYRINGE IV PRN ×3 (11:00→12:00)
[2018-03-19] MEDS ORDERED: HYDRALAZINE 20MG/ML VIAL IV PRN (11:00)
[2018-03-19] MEDS: LOSARTAN POTASSIUM 50 MG TABLET PO SCH (12:18)
[2018-03-19] MEDS: METOPROLOL TARTRATE 50MG TABLET PO SCH ×2 (12:18→21:05)
[2018-03-19] MEDS: INSULIN REGULAR (DRIP) 100 UNITS in SODIUM CHLORIDE 0.9% 100 ML IV SCH (13:00)
[2018-03-19] MEDS ORDERED: INSULIN LISPRO 100 UNITS/ML SUBCUT SCH (13:20)
[2018-03-19] MEDS ORDERED: MAGNESIUM 2 G PREMIX 50 ML IV NR (14:00)
[2018-03-19] MEDS ORDERED: POTASSIUM PHOS,M-BASIC-D-BASIC 20 MMOL in DEXT 5% WATER 243.3333 ML IV NR (14:00)
[2018-03-19 15:49] LABS: CHLORIDE 101 mEq/L (98-107)
[2018-03-19] MEDS ORDERED: METOPROLOL TARTRATE 50MG TABLET PO SCH (21:00)
[2018-03-19] MEDS ORDERED: AMLODIPINE 5MG TABLET PO SCH (21:00)
[2018-03-19 21:43] LABS: T4 FREE 1.01 ng/dL (0.76-1.46)
[2018-03-20] VITALS (33 sets, daily range): BP systolic 104–156; BP diastolic 59–115
[2018-03-20 00:30] LABS: CHLORIDE 101 mEq/L (98-107)
[2018-03-20] MEDS: BLOOD SUGAR DIAGNOSTIC STRIP TEST SCH ×18 (01:00→20:00)
[2018-03-20] MEDS: NACL IV SCH ×3 (04:11→17:36)
[2018-03-20] MEDS: DEXT IV SCH ×3 (04:11→17:36)
[2018-03-20] MEDS: POTASSIUM ACETATE IV SCH ×3 (04:11→17:36)
[2018-03-20] MEDS: MORPHINE SULFATE 4 MG/ML CPJ (NOT FOR IM USE) IV PRN ×4 (04:48→23:03)
[2018-03-20 07:12] LABS: CHLORIDE 102 mEq/L (98-107)
[2018-03-20 07:18] LABS: PHOSPHORUS 1.9 mg/dL (2.5-4.9)
[2018-03-20] MEDS: LOSARTAN POTASSIUM 50 MG TABLET PO SCH (08:18)
[2018-03-20] MEDS: PANTOPRAZOLE SODIUM 40 MG/VIAL IV SCH (08:18)
[2018-03-20] MEDS: METOPROLOL TARTRATE 50MG TABLET PO SCH ×2 (08:19→20:58)
[2018-03-20] MEDS ORDERED: POTASSIUM-SODIUM PHOSPHATE POWDER PACKET PO NR (10:15)
[2018-03-20] MEDS: ONDANSETRON HCL 4MG/2ML VIAL IV PRN ×2 (10:42→19:03)
[2018-03-20] MEDS: ENOXAPARIN 40MG/0.4ML SYR SUBCUT SCH (11:59)
[2018-03-20] MEDS: INSULIN REGULAR (DRIP) 100 UNITS in SODIUM CHLORIDE 0.9% 100 ML IV SCH (12:22)
[2018-03-20] MEDS ORDERED: DEXTROSE 50% WATER 50ML SYRINGE IV PRN (13:45)
[2018-03-20] MEDS ORDERED: INSULIN GLARGINE UD 100 UNITS/ML SYR SUBCUT NR (15:00)
[2018-03-20 15:28] LABS: CHLORIDE 101 mEq/L (98-107)
[2018-03-20] MEDS: INSULIN LISPRO 100 UNITS/ML SUBCUT SCH ×2 (16:00→20:00)
[2018-03-20] MEDS: AMITRIPTYLINE 10MG TABLET PO SCH (21:52)
[2018-03-20] MEDS: GABAPENTIN 300MG CAPSULE PO SCH (21:53)
[2018-03-20] MEDS: INSULIN GLARGINE UD 100 UNITS/ML SYR SUBCUT SCH (22:58)
[2018-03-20 23:47] LABS: CHLORIDE 102 mEq/L (98-107)
[2018-03-21] VITALS (12 sets, daily range): BP systolic 97–119; BP diastolic 52–76
[2018-03-21] MEDS: INSULIN LISPRO 100 UNITS/ML SUBCUT SCH ×9 (00:48→21:00)
[2018-03-21] MEDS: ONDANSETRON HCL 4MG/2ML VIAL IV PRN (03:02)
[2018-03-21] MEDS: MORPHINE SULFATE 4 MG/ML CPJ (NOT FOR IM USE) IV PRN ×4 (03:02→18:10)
[2018-03-21] MEDS: DEXT IV SCH (03:02)
[2018-03-21] MEDS: NACL IV SCH (03:02)
[2018-03-21] MEDS: POTASSIUM ACETATE IV SCH (03:02)
[2018-03-21] MEDS: BLOOD SUGAR DIAGNOSTIC STRIP TEST SCH ×6 (04:00→21:08)
[2018-03-21] MEDS: GABAPENTIN 300MG CAPSULE PO SCH ×3 (06:06→21:24)
[2018-03-21] MEDS: PANTOPRAZOLE SODIUM 40 MG/VIAL IV SCH (08:58)
[2018-03-21] MEDS: ENOXAPARIN 40MG/0.4ML SYR SUBCUT SCH (08:59)
[2018-03-21] MEDS: LOSARTAN POTASSIUM 50 MG TABLET PO SCH (09:00)
[2018-03-21] MEDS: METOPROLOL TARTRATE 50MG TABLET PO SCH ×2 (09:00→21:07)
[2018-03-21 09:06] LABS: CHLORIDE 103 mEq/L (98-107)
[2018-03-21] MEDS: INSULIN GLARGINE UD 100 UNITS/ML SYR SUBCUT SCH ×2 (09:45→21:48)
[2018-03-21] MEDS ORDERED: MORPHINE SULFATE 2 MG/ML CPJ (NOT FOR IM USE) IV PRN (11:45)
[2018-03-21] MEDS: METOCLOPRAMIDE HCL 10MG/2ML VIAL IV SCH (17:56)
[2018-03-21] MEDS: AMITRIPTYLINE 10MG TABLET PO SCH (21:08)
[2018-03-22] VITALS: BP 117/76
[2018-03-22 04:00] VITALS: BP 123/68
[2018-03-22] MEDS: METOCLOPRAMIDE HCL 10MG/2ML VIAL IV SCH ×2 (04:08→06:38)
[2018-03-22] MEDS: BLOOD SUGAR DIAGNOSTIC STRIP TEST SCH ×2 (06:38→12:45)
[2018-03-22] MEDS: GABAPENTIN 300MG CAPSULE PO SCH ×2 (06:38→13:43)
[2018-03-22] MEDS: INSULIN LISPRO 100 UNITS/ML SUBCUT SCH ×4 (06:39→13:05)
[2018-03-22] MEDS: PANTOPRAZOLE SODIUM 40 MG/VIAL IV SCH (09:13)
[2018-03-22] MEDS: ENOXAPARIN 40MG/0.4ML SYR SUBCUT SCH (09:13)
[2018-03-22] MEDS: METOPROLOL TARTRATE 50MG TABLET PO SCH (09:14)
[2018-03-22] MEDS: MORPHINE SULFATE 4 MG/ML CPJ (NOT FOR IM USE) IV PRN (09:14)
[2018-03-22] MEDS: LOSARTAN POTASSIUM 50 MG TABLET PO SCH (09:14)
[2018-03-22] MEDS: INSULIN GLARGINE UD 100 UNITS/ML SYR SUBCUT SCH (10:46)
[2018-03-22 14:51] VITALS: BP 107/59
[2018-03-22] MEDS ORDERED: METOCLOPRAMIDE HCL 10MG/2ML VIAL IV SCH (17:00)
== END 2018-03-22 15:55 | disposition home or self-care (01) | DRG 420 ==
LOC: ER 20:49 → CVICU 03-16 04:21 → ENRESERV 03-16 06:59 → CANRESERV 03-16 06:59 → EDBEDREQSVC 03-16 08:58 → EDBEDREQ 03-16 08:58 → ENRESERV 03-16 10:58 → CVICU 03-20 11:13 → 6EST 03-21 12:22
PROVIDERS: ADMIT Internal Medicine; ATTEND Internal Medicine
DX: E10.10 Type 1 diabetes mellitus with ketoacidosis without coma (principal); K92.0 Hematemesis; E87.8 Other disorders of electrolyte and fluid balance, not elsewhere classified; R17 Unspecified jaundice; E44.1 Mild protein-calorie malnutrition; E83.42 Hypomagnesemia; K31.84 Gastroparesis; E87.5 Hyperkalemia; E83.39 Other disorders of phosphorus metabolism; G89.29 Other chronic pain; M54.10 Radiculopathy, site unspecified; I10 Essential (primary) hypertension; R10.9 Unspecified abdominal pain; F12.90 Cannabis use, unspecified, uncomplicated; R00.0 Tachycardia, unspecified; Z91.19 Patient's noncompliance with other medical treatment and regimen; Z68.26 Body mass index [BMI] 26.0-26.9, adult; E10.43 Type 1 diabetes mellitus with diabetic autonomic (poly)neuropathy
CPT/HCPCS: 36415; 36600; 74018; 76705; 80048; 80053; 80305; 81003; 82010; 82375; 82805; 82962; 83036; 83605; 83690; 83735; 84100; 84132; 84439; 84443; 85025; 85610; 87040; 93005; 93306; 96361; 96374; 96375; 96376; 99285; C9113; J0360; J1650; J1815; J2270; J2405; J2765; J3475; J3480; J3490; J7030; J7050; J7060

== ENCOUNTER 2018-06-06 11:50 | Inpatient (IN) | payer MEDICAID, OTHER ==
[~2018-06-06] VITALS: Ht 175.3 cm; Wt 53.5 kg
[2018-06-06] VITALS (21 sets, daily range): BP systolic 103–167; BP diastolic 53–106
[~2018-06-06 11:50] MED LIST changes: -HYDR-4001 PO; +HYDR-4009 MT; +INSU100I28 SQ; -LANTUSUD SUBCUT; -METO-293 PO
[2018-06-06] MEDS ORDERED: ONDANSETRON HCL 4MG/2ML VIAL IV ONE (12:45)
[2018-06-06] MEDS ORDERED: SODIUM CHLORIDE 0.9% 1,000 ML IV ONE (12:45)
[2018-06-06 13:00] LABS: HEMATOCRIT. 41.9 % (42.0-52.0); HEMOGLOBIN. 12.5 g/dL (14.0-18.0); MEAN CORPUSCULAR HEMOGLOBIN 19.8 pg (28.0-32.0); MEAN CORPUSCULAR VOLUME 66.1 fL (80.0-94.0); MEAN PLATELET VOLUME 9.3 fl (7.4-10.4); PLATELET 402 x1000/uL (130-400); RED BLOOD CELL COUNT 6.34 mill/uL (4.7-6.1); RED CELL DISTRIBUTION WIDTH 21.5 % (11.6-14.6)
[2018-06-06 13:06] LABS: CHLORIDE 99 mEq/L (98-107)
[2018-06-06 13:08] LABS: INR 1.1; PROTHROMBIN TIME 10.6 sec (9.1-11.1)
[2018-06-06] MEDS ORDERED: INSULIN REGULAR (DRIP) 100 UNITS in SODIUM CHLORIDE 0.9% 99 ML IV ONE ×2 (13:43→14:00)
[2018-06-06] MEDS ORDERED: SODIUM CHLORIDE 0.9% 1,000 ML IV STA (13:43)
[2018-06-06 14:02] LABS: PLATELET ESTIMATE SLIGHTLY INCREASED
[2018-06-06 14:29] LABS: CHLORIDE 102 mEq/L (98-107)
[2018-06-06 14:37] LABS: PHOSPHORUS 7.4 mg/dL (2.5-4.9)
[2018-06-06 14:50] LABS: CLARITY URINE CLEAR (CLEAR); COLOR URINE YELLOW (YELLOW); KETONES URINE 4+ (NEGATIVE); LEUKOCYTE ESTERASE URINE NEGATIVE (NEGATIVE); NITRITE URINE NEGATIVE (NEGATIVE); OCCULT BLOOD URINE NEGATIVE (NEGATIVE); PROTEIN URINE NEGATIVE (NEGATIVE); SPECIFIC GRAVITY URINE 1.033 (1.005-1.030); UROBILINOGEN URINE 0.2 E.U./dL (0.2-1.0)
[2018-06-06 15:13] LABS: BG BASE EXCESS -16.4 mmol/L (-2.0-2.0); BG CARBOXYHEMOGLOBIN 1.1 % (0.5-1.5); BG DEOXYHEMOGLOBIN 17.8 % (0.0-5.0); BG FRACTION INSPIRED OXYGEN 21; BG HCO3 ACT 11.6 mmol/L (22.0-26.0); BG METHEMOGLOBIN 0.4 % (0.0-1.5); BG OXYGEN SATURATION 81.9 % (92.0-98.5); BG OXYHEMOGLOBIN 80.7 % (94.0-97.0); BG PCO2 35.3 mmHg (35.0-45.0); BG PH 7.136 (7.350-7.450); BG PO2 58.1 mmHg (75.0-100.0); BG SAMPLE SITE LEFT RADIAL; BG VENT MODE ROOM AIR
[2018-06-06] MEDS ORDERED: HYDROCODONE/ACETAMINOPHEN 5/325MG TABLET PO PRN (16:00)
[2018-06-06] MEDS ORDERED: CLONIDINE 0.1MG TABLET PO PRN (16:00)
[2018-06-06] MEDS ORDERED: MAGNESIUM/ALUMINUM HYDROXIDE/SIMETHICONE 30ML UDC PO PRN (16:00)
[2018-06-06] MEDS ORDERED: DOCUSATE SODIUM 100MG CAPSULE PO PRN (16:00)
[2018-06-06] MEDS ORDERED: ACETAMINOPHEN 325MG TABLET PO PRN (16:00)
[2018-06-06] MEDS ORDERED: IPRATROPIUM/ALBUTEROL 0.5-3(2.5)MG/3ML NEB INH PRN (16:00)
[2018-06-06] MEDS ORDERED: INSULIN REGULAR (DRIP) 100 UNITS in SODIUM CHLORIDE 0.9% 100 ML IV SCH (16:00)
[2018-06-06 16:35] LABS: *AMPHETAMINES SCREEN URINE NEGATIVE (NEGATIVE); *BARBITURATES SCREEN URINE NEGATIVE (NEGATIVE); *BENZODIAZEPINES SCREEN URINE NEGATIVE (NEGATIVE); *COCAINE SCREEN URINE NEGATIVE (NEGATIVE); METHADONE URINE SCREEN NEGATIVE (NEGATIVE); OPIATES URINE SCREEN PRESUMTIVE POSITIVE (NEGATIVE)
[2018-06-06 16:36] LABS: CANNABINOID URINE SCREEN PRESUMTIVE POSITIVE (NEGATIVE); PHENCYCLIDINE URINE SCREEN NEGATIVE (NEGATIVE)
[2018-06-06] MEDS: PANTOPRAZOLE SODIUM 40 MG/VIAL IV SCH (17:13)
[2018-06-06] MEDS: METOCLOPRAMIDE HCL 10MG/2ML VIAL IV SCH (17:13)
[2018-06-06] MEDS ORDERED: DEXTROSE 50% WATER 50ML SYRINGE IV PRN ×2 (17:15→17:30)
[2018-06-06] MEDS ORDERED: ONDANSETRON 4MG ODT PO PRN (17:15)
[2018-06-06] MEDS ORDERED: SODIUM CHLORIDE 0.9% 1,000 ML IV SCH (17:15)
[2018-06-06] MEDS: MORPHINE SULFATE 4 MG/ML CPJ (NOT FOR IM USE) IV PRN ×2 (17:16→20:06)
[2018-06-06] MEDS: INSULIN REGULAR (DRIP) 100 UNITS in SODIUM CHLORIDE 0.9% 100 ML IV SCH ×2 (17:41→18:27)
[2018-06-06] MEDS: BLOOD SUGAR DIAGNOSTIC STRIP TEST SCH ×6 (18:00→23:00)
[2018-06-06] MEDS: PIPERACILLIN/TAZ 3.375G PREMIX 50 ML IV SCH (18:26)
[2018-06-06 19:53] LABS: HEMATOCRIT 41.6 % (42.0-52.0); HEMOGLOBIN 12.4 g/dL (14.0-18.0)
[2018-06-06] MEDS: ONDANSETRON HCL 4MG/2ML VIAL IV PRN (20:05)
[2018-06-06 20:14] LABS: CHLORIDE 112 mEq/L (98-107)
[2018-06-06 20:16] LABS: PHOSPHORUS 3.5 mg/dL (2.5-4.9)
[2018-06-06] MEDS ORDERED: DEXT 5%/0.9% NACL KCL 20MEQ/L 1,000 ML IV ONE (20:45)
[2018-06-06 23:30] LABS: CHLORIDE 118 mEq/L (98-107)
[2018-06-06 23:40] LABS: CREATINE KINASE 64 IU/L (39-308)
[2018-06-06 23:41] LABS: CREATINE KINASE MB FRACTION < 1.0 ng/mL (0.5-3.6)
[2018-06-07] VITALS (37 sets, daily range): BP systolic 111–171; BP diastolic 61–106
[2018-06-07] MEDS: MORPHINE SULFATE 4 MG/ML CPJ (NOT FOR IM USE) IV PRN ×3 (00:38→15:59)
[2018-06-07] MEDS: METOCLOPRAMIDE HCL 10MG/2ML VIAL IV SCH ×4 (00:54→18:01)
[2018-06-07] MEDS: BLOOD SUGAR DIAGNOSTIC STRIP TEST SCH ×11 (01:00→21:25)
[2018-06-07 02:13] LABS: HEMATOCRIT 40.4 % (42.0-52.0); HEMOGLOBIN 12.2 g/dL (14.0-18.0)
[2018-06-07] MEDS: PIPERACILLIN/TAZ 3.375G PREMIX 50 ML IV SCH ×3 (02:22→21:00)
[2018-06-07 03:03] LABS: CHLORIDE 116 mEq/L (98-107)
[2018-06-07] MEDS: ONDANSETRON HCL 4MG/2ML VIAL IV PRN ×4 (04:52→21:17)
[2018-06-07] MEDS: DEXT 5%/0.9% NACL KCL 20MEQ/L 1,000 ML IV SCH ×3 (05:27→18:01)
[2018-06-07] MEDS: PANTOPRAZOLE SODIUM 40 MG/VIAL IV SCH ×2 (06:15→18:01)
[2018-06-07 07:56] LABS: BASOPHILS % 0.5 % (0.0-2.0); HEMATOCRIT. 34.4 % (42.0-52.0); HEMOGLOBIN. 10.3 g/dL (14.0-18.0); LYMPHOCYTES % 9.2 % (20.0-50.0); MEAN CORPUSCULAR HEMOGLOBIN 19.4 pg (28.0-32.0); MEAN CORPUSCULAR VOLUME 64.8 fL (80.0-94.0); MEAN PLATELET VOLUME 9.5 fl (7.4-10.4); MONOCYTES % 5.3 % (2.0-8.0); PLATELET 349 x1000/uL (130-400); RED BLOOD CELL COUNT 5.31 mill/uL (4.7-6.1); RED CELL DISTRIBUTION WIDTH 21.3 % (11.6-14.6)
[2018-06-07 08:11] LABS: CHLORIDE 119 mEq/L (98-107)
[2018-06-07 08:21] LABS: LDL CHOLESTEROL 68 mg/dL (5-100)
[2018-06-07 08:22] LABS: CREATINE KINASE 66 IU/L (39-308); CREATINE KINASE MB FRACTION < 1.0 ng/mL (0.5-3.6)
[2018-06-07 08:23] LABS: HDL CHOLESTEROL 55 mg/dL (40-59)
[2018-06-07] MEDS ORDERED: CLONIDINE 0.1MG TABLET PO PRN (09:30)
[2018-06-07] MEDS ORDERED: CLONIDINE 0.2MG TABLET PO PRN (09:30)
[2018-06-07] MEDS: AMLODIPINE 2.5MG TABLET PO SCH ×2 (09:43→21:13)
[2018-06-07 13:15] LABS: HEMATOCRIT 34.2 % (42.0-52.0); HEMOGLOBIN 10.2 g/dL (14.0-18.0)
[2018-06-07] MEDS: METOPROLOL TARTRATE 25MG TABLET PO SCH (21:13)
[2018-06-08] VITALS (26 sets, daily range): BP systolic 116–170; BP diastolic 71–119
[2018-06-08] MEDS: METOCLOPRAMIDE HCL 10MG/2ML VIAL IV SCH ×4 (00:12→17:21)
[2018-06-08] MEDS: BLOOD SUGAR DIAGNOSTIC STRIP TEST SCH ×16 (01:00→21:58)
[2018-06-08] MEDS: ONDANSETRON HCL 4MG/2ML VIAL IV PRN (01:10)
[2018-06-08] MEDS: DEXT 5%/0.9% NACL KCL 20MEQ/L 1,000 ML IV SCH ×3 (01:14→17:21)
[2018-06-08] MEDS: PIPERACILLIN/TAZ 3.375G PREMIX 50 ML IV SCH ×3 (04:12→20:23)
[2018-06-08] MEDS: MORPHINE SULFATE 4 MG/ML CPJ (NOT FOR IM USE) IV PRN ×3 (04:17→20:06)
[2018-06-08] MEDS: INSULIN REGULAR (DRIP) 100 UNITS in SODIUM CHLORIDE 0.9% 100 ML IV SCH (05:42)
[2018-06-08 06:00] LABS: BASOPHILS % 0.5 % (0.0-2.0); HEMATOCRIT. 36.5 % (42.0-52.0); HEMOGLOBIN. 11.1 g/dL (14.0-18.0); LYMPHOCYTES % 7.7 % (20.0-50.0); MEAN CORPUSCULAR HEMOGLOBIN 19.4 pg (28.0-32.0); MEAN CORPUSCULAR VOLUME 64.1 fL (80.0-94.0); MEAN PLATELET VOLUME 9.4 fl (7.4-10.4); MONOCYTES % 5.4 % (2.0-8.0); NEUTROPHILS % 86.4 % (40.0-76.0); PLATELET 323 x1000/uL (130-400); RED CELL DISTRIBUTION WIDTH 21.7 % (11.6-14.6)
[2018-06-08] MEDS: PANTOPRAZOLE SODIUM 40 MG/VIAL IV SCH ×2 (06:23→17:21)
[2018-06-08 06:40] LABS: CHLORIDE 108 mEq/L (98-107)
[2018-06-08 08:49] LABS: PHOSPHORUS 2.8 mg/dL (2.5-4.9)
[2018-06-08] MEDS: AMLODIPINE 2.5MG TABLET PO SCH (09:20)
[2018-06-08] MEDS: METOPROLOL TARTRATE 25MG TABLET PO SCH ×2 (09:21→20:24)
[2018-06-08] MEDS ORDERED: DEXTROSE 50% WATER 50ML SYRINGE IV PRN (12:00)
[2018-06-08] MEDS: SUCRALFATE 1 G/10 ML UDC PO SCH ×3 (12:43→20:24)
[2018-06-08] MEDS ORDERED: INSULIN LISPRO 100 UNITS/ML SUBCUT SCH (13:20)
[2018-06-08] MEDS ORDERED: INSULIN GLARGINE UD 100 UNITS/ML SYR SUBCUT SCH (13:30)
[2018-06-08] MEDS: HYDRALAZINE HCL 50MG TABLET PO SCH ×2 (14:00→22:04)
[2018-06-08] MEDS: INSULIN LISPRO 100 UNITS/ML SUBCUT SCH ×2 (18:28→22:05)
[2018-06-08] MEDS: AMLODIPINE 5MG TABLET PO SCH (22:03)
[2018-06-08] MEDS: INSULIN GLARGINE UD 100 UNITS/ML SYR SUBCUT SCH (22:12)
[2018-06-09] VITALS (24 sets, daily range): BP systolic 114–195; BP diastolic 62–108
[2018-06-09] MEDS: DEXT 5%/0.9% NACL KCL 20MEQ/L 1,000 ML IV SCH ×4 (00:19→18:18)
[2018-06-09] MEDS: METOCLOPRAMIDE HCL 10MG/2ML VIAL IV SCH ×4 (00:19→18:18)
[2018-06-09] MEDS: MORPHINE SULFATE 4 MG/ML CPJ (NOT FOR IM USE) IV PRN (04:25)
[2018-06-09] MEDS: PIPERACILLIN/TAZ 3.375G PREMIX 50 ML IV SCH ×3 (04:26→20:03)
[2018-06-09] MEDS: HYDRALAZINE HCL 50MG TABLET PO SCH ×3 (06:00→21:43)
[2018-06-09 06:11] LABS: EOSINOPHILS % 0.1 % (0.0-5.0); HEMATOCRIT. 36.8 % (42.0-52.0); HEMOGLOBIN. 11.2 g/dL (14.0-18.0); LYMPHOCYTES % 25.7 % (20.0-50.0); MEAN CORPUSCULAR HEMOGLOBIN 19.5 pg (28.0-32.0); MONOCYTES % 8.3 % (2.0-8.0); NEUTROPHILS % 64.9 % (40.0-76.0); RED BLOOD CELL COUNT 5.75 mill/uL (4.7-6.1); RED CELL DISTRIBUTION WIDTH 21.6 % (11.6-14.6)
[2018-06-09] MEDS: PANTOPRAZOLE SODIUM 40 MG/VIAL IV SCH ×2 (06:35→18:18)
[2018-06-09] MEDS: BLOOD SUGAR DIAGNOSTIC STRIP TEST SCH ×4 (06:52→21:19)
[2018-06-09] MEDS: INSULIN LISPRO 100 UNITS/ML SUBCUT SCH ×4 (07:00→21:34)
[2018-06-09 08:07] LABS: MEAN PLATELET VOLUME 9.4 fl (7.4-10.4); PLATELET 283 x1000/uL (130-400)
[2018-06-09] MEDS: AMLODIPINE 5MG TABLET PO SCH ×2 (08:12→21:00)
[2018-06-09] MEDS: SUCRALFATE 1 G/10 ML UDC PO SCH ×4 (08:31→20:03)
[2018-06-09] MEDS: METOPROLOL TARTRATE 25MG TABLET PO SCH ×2 (08:32→21:00)
[2018-06-09 09:26] LABS: CHLORIDE 104 mEq/L (98-107)
[2018-06-09] MEDS: INSULIN GLARGINE UD 100 UNITS/ML SYR SUBCUT SCH (10:50)
[2018-06-09] MEDS ORDERED: INSULIN GLARGINE UD 100 UNITS/ML SYR SUBCUT SCH (22:00)
[2018-06-10] VITALS (10 sets, daily range): BP systolic 110–144; BP diastolic 66–95
[2018-06-10] MEDS: METOCLOPRAMIDE HCL 10MG/2ML VIAL IV SCH ×2 (00:08→05:22)
[2018-06-10] MEDS: DEXT 5%/0.9% NACL KCL 20MEQ/L 1,000 ML IV SCH ×2 (01:17→08:41)
[2018-06-10] MEDS: PIPERACILLIN/TAZ 3.375G PREMIX 50 ML IV SCH (04:27)
[2018-06-10] MEDS: PANTOPRAZOLE SODIUM 40 MG/VIAL IV SCH (05:22)
[2018-06-10] MEDS: HYDRALAZINE HCL 50MG TABLET PO SCH (05:22)
[2018-06-10 05:37] LABS: BASOPHILS % 0.7 % (0.0-2.0); EOSINOPHILS % 0.3 % (0.0-5.0); HEMATOCRIT. 31.9 % (42.0-52.0); HEMOGLOBIN. 9.9 g/dL (14.0-18.0); MEAN CORPUSCULAR HEMOGLOBIN 19.7 pg (28.0-32.0); MEAN CORPUSCULAR VOLUME 63.2 fL (80.0-94.0); MEAN PLATELET VOLUME 8.9 fl (7.4-10.4); MONOCYTES % 11.8 % (2.0-8.0); NEUTROPHILS % 45.2 % (40.0-76.0); PLATELET 272 x1000/uL (130-400); RED BLOOD CELL COUNT 5.05 mill/uL (4.7-6.1); RED CELL DISTRIBUTION WIDTH 20.9 % (11.6-14.6)
[2018-06-10 05:49] LABS: CHLORIDE 106 mEq/L (98-107)
[2018-06-10] MEDS: INSULIN LISPRO 100 UNITS/ML SUBCUT SCH (05:56)
[2018-06-10] MEDS: BLOOD SUGAR DIAGNOSTIC STRIP TEST SCH (06:54)
[2018-06-10] MEDS: METOPROLOL TARTRATE 25MG TABLET PO SCH (08:03)
[2018-06-10] MEDS: AMLODIPINE 5MG TABLET PO SCH (08:04)
[2018-06-10] MEDS: SUCRALFATE 1 G/10 ML UDC PO SCH (08:41)
== END 2018-06-10 09:50 | disposition left against medical advice (07) | DRG 241 ==
LOC: ER 11:50 → CVICU 13:56 → ENRESERV 14:09
PROVIDERS: ADMIT Internal Medicine; ATTEND Internal Medicine
DX: K29.71 Gastritis, unspecified, with bleeding (principal); E11.10 Type 2 diabetes mellitus with ketoacidosis without coma; K22.11 Ulcer of esophagus with bleeding; I24.9 Acute ischemic heart disease, unspecified; K22.6 Gastro-esophageal laceration-hemorrhage syndrome; D47.3 Essential (hemorrhagic) thrombocythemia; I10 Essential (primary) hypertension; E87.5 Hyperkalemia; R07.9 Chest pain, unspecified; K44.9 Diaphragmatic hernia without obstruction or gangrene; Z53.21 Procedure and treatment not carried out due to patient leaving prior to being seen by health care provider; G89.29 Other chronic pain; Z79.899 Other long term (current) drug therapy; Z91.19 Patient's noncompliance with other medical treatment and regimen; Z79.4 Long term (current) use of insulin
CPT/HCPCS: 36415; 36600; 71045; 80048; 80053; 80061; 80305; 81003; 82010; 82375; 82550; 82553; 82805; 82962; 83036; 83690; 83735; 84100; 84443; 84484; 85014; 85018; 85025; 85379; 85610; 87040; 87086; 93005; 93970; 96361; 96375; 99291; C9113; J1815; J2270; J2405; J2543; J2765; J7030; J7050

== ENCOUNTER 2018-11-22 13:37 | Emergency (ER) | payer MEDICAID ==
[~2018-11-22] VITALS: Ht 167.6 cm; Wt 73.0 kg
[~2018-11-22 13:37] MED LIST changes: -HYDR-4009 MT
[2018-11-22] MEDS ORDERED: KETOROLAC 30MG/ML VIAL IV STA (18:16)
[2018-11-22] MEDS ORDERED: MAGNESIUM/ALUMINUM HYDROXIDE/SIMETHICONE 30ML UDC PO STA (18:16)
[2018-11-22] MEDS ORDERED: SODIUM CHLORIDE 0.9% 1,000 ML IV ONE (18:16)
[2018-11-22] MEDS ORDERED: ONDANSETRON HCL 4MG/2ML INJ IV STA (18:16)
[2018-11-22 19:29] LABS: BASOPHILS % 0.4 % (0.0-2.0); HEMATOCRIT. 41.3 % (42.0-52.0); HEMOGLOBIN. 12.4 g/dL (14.0-18.0); LYMPHOCYTES % 8.7 % (20.0-50.0); MEAN CORPUSCULAR HEMOGLOBIN 19.3 pg (28.0-32.0); MEAN CORPUSCULAR VOLUME 64.2 fL (80.0-94.0); MEAN PLATELET VOLUME 9.8 fl (7.4-10.4); MONOCYTES % 2.4 % (2.0-8.0); NEUTROPHILS % 88.5 % (40.0-76.0); PLATELET 321 x1000/uL (130-400); RED BLOOD CELL COUNT 6.43 mill/uL (4.7-6.1); RED CELL DISTRIBUTION WIDTH 25.1 % (11.6-14.6)
[2018-11-22 19:35] LABS: CHLORIDE 98 mEq/L (98-107)
[2018-11-22 19:38] LABS: ETHANOL BLOOD < 10 mg/dL
[2018-11-22 19:48] LABS: PLATELET ESTIMATE NORMAL
[2018-11-22] MEDS ORDERED: INSULIN REGULAR (HUMULIN R) 300UNITS/3ML SUBCUT ONE (20:00)
[2018-11-22 20:52] LABS: *AMPHETAMINES SCREEN URINE NEGATIVE (NEGATIVE); *BARBITURATES SCREEN URINE NEGATIVE (NEGATIVE); *BENZODIAZEPINES SCREEN URINE NEGATIVE (NEGATIVE); *COCAINE SCREEN URINE NEGATIVE (NEGATIVE); METHADONE URINE SCREEN NEGATIVE (NEGATIVE); OPIATES URINE SCREEN NEGATIVE (NEGATIVE)
[2018-11-22 20:53] LABS: CANNABINOID URINE SCREEN PRESUMTIVE POSITIVE (NEGATIVE); PHENCYCLIDINE URINE SCREEN NEGATIVE (NEGATIVE)
[2018-11-22 21:54] VITALS: BP 131/76
== END 2018-11-22 21:55 | disposition home or self-care (01) ==
LOC: ER 13:37
DX: R10.0 Acute abdomen (principal); N32.89 Other specified disorders of bladder; E11.65 Type 2 diabetes mellitus with hyperglycemia; R03.0 Elevated blood-pressure reading, without diagnosis of hypertension
CPT/HCPCS: 36415; 74176; 80053; 80305; 83690; 85025; 96361; 96374; 96375; 99284; G0482; J1885; J2405; J7030

== ENCOUNTER 2018-11-23 12:34 | Inpatient (IN) | payer MEDICAID ==
[~2018-11-23] VITALS: Ht 172.7 cm; Wt 57.8 kg
[2018-11-23 14:52] LABS: BG BASE EXCESS -17.8 mmol/L (-2.0-2.0); BG CARBOXYHEMOGLOBIN 0.8 % (0.5-1.5); BG DEOXYHEMOGLOBIN 2.3 % (0.0-5.0); BG FRACTION INSPIRED OXYGEN 21; BG HCO3 ACT 8.6 mmol/L (22.0-26.0); BG METHEMOGLOBIN 0.5 % (0.0-1.5); BG OXYGEN SATURATION 97.7 % (92.0-98.5); BG OXYHEMOGLOBIN 96.4 % (94.0-97.0); BG PCO2 23.1 mmHg (35.0-45.0); BG PH 7.189 (7.350-7.450); BG PO2 123.4 mmHg (75.0-100.0); BG SAMPLE SITE RIGHT BRACHIAL; BG TOTAL HEMOGLOBIN 12.8 g/dL (12.0-18.0); BG VENT MODE ROOM AIR
[2018-11-23 14:59] LABS: CLARITY URINE CLEAR (CLEAR); COLOR URINE YELLOW (YELLOW); KETONES URINE 3+ (NEGATIVE); LEUKOCYTE ESTERASE URINE NEGATIVE (NEGATIVE); NITRITE URINE NEGATIVE (NEGATIVE); OCCULT BLOOD URINE NEGATIVE (NEGATIVE); PROTEIN URINE NEGATIVE (NEGATIVE); SPECIFIC GRAVITY URINE 1.026 (1.005-1.030); UROBILINOGEN URINE 0.2 E.U./dL (0.2-1.0)
[2018-11-23 15:03] LABS: HEMATOCRIT. 45.7 % (42.0-52.0); HEMOGLOBIN. 12.2 g/dL (14.0-18.0); MEAN CORPUSCULAR HEMOGLOBIN 19.1 pg (28.0-32.0); MEAN CORPUSCULAR VOLUME 71.7 fL (80.0-94.0); MEAN PLATELET VOLUME 9.4 fl (7.4-10.4); PLATELET 396 x1000/uL (130-400); RED BLOOD CELL COUNT 6.37 mill/uL (4.7-6.1); RED CELL DISTRIBUTION WIDTH 25.8 % (11.6-14.6)
[2018-11-23] MEDS: SODIUM CHLORIDE 0.9% 1,000 ML IV ONE ×4 (15:09→16:02)
[2018-11-23 15:12] LABS: CHLORIDE 85 mEq/L (98-107)
[2018-11-23 15:18] LABS: ETHANOL BLOOD < 10 mg/dL
[2018-11-23] MEDS ORDERED: SODIUM CHLORIDE 0.9% 1,000 ML IV NR (15:22)
[2018-11-23 15:23] LABS: *AMPHETAMINES SCREEN URINE NEGATIVE (NEGATIVE); *BARBITURATES SCREEN URINE NEGATIVE (NEGATIVE); *BENZODIAZEPINES SCREEN URINE NEGATIVE (NEGATIVE); *COCAINE SCREEN URINE NEGATIVE (NEGATIVE)
[2018-11-23 15:24] LABS: CANNABINOID URINE SCREEN NEGATIVE (NEGATIVE); METHADONE URINE SCREEN NEGATIVE (NEGATIVE); OPIATES URINE SCREEN NEGATIVE (NEGATIVE); PHENCYCLIDINE URINE SCREEN NEGATIVE (NEGATIVE)
[2018-11-23 15:29] LABS: BETA HYDROXYBUTYRATE 8.1 mMol/L (0.0-0.3)
[2018-11-23] MEDS ORDERED: INSULIN REGULAR (DRIP) 100 UNITS in SODIUM CHLORIDE 0.9% 99 ML IV SCH (15:30)
[2018-11-23] MEDS ORDERED: INSULIN REGULAR (HUMULIN R) 300UNITS/3ML IV NR (15:30)
[2018-11-23] MEDS ORDERED: ONDANSETRON HCL 4MG/2ML INJ IV ONE (15:45)
[2018-11-23 16:02] LABS: PLATELET ESTIMATE NORMAL
[2018-11-23 17:13] LABS: PHOSPHORUS 8.9 mg/dL (2.5-4.9)
[2018-11-23] MEDS ORDERED: LORAZEPAM 2MG/ML CPJ IV PRN (17:45)
[2018-11-23] MEDS ORDERED: CLONIDINE 0.1MG TABLET PO PRN (17:45)
[2018-11-23] MEDS ORDERED: NA PHOS,M-B/NA PHOS,DI-BA ENEMA 118ML PR PRN (17:45)
[2018-11-23] MEDS ORDERED: GUAIFENESIN 200MG/10ML SUGAR FREE UDC PO PRN (17:45)
[2018-11-23] MEDS ORDERED: LEVOFLOXACIN 500MG PREMIX 100 ML IV SCH (17:45)
[2018-11-23] MEDS ORDERED: DIPHENHYDRAMINE 50MG/ML VIAL IV PRN (17:45)
[2018-11-23] MEDS ORDERED: MAGNESIUM/ALUMINUM HYDROXIDE/SIMETHICONE 30ML UDC PO PRN (17:45)
[2018-11-23] MEDS ORDERED: DOCUSATE SODIUM 100MG CAPSULE PO PRN (17:45)
[2018-11-23] MEDS ORDERED: INSULIN REGULAR (DRIP) 100 UNITS in SODIUM CHLORIDE 0.9% 100 ML IV SCH (17:45)
[2018-11-23] MEDS ORDERED: HYDROCODONE/ACETAMINOPHEN 5/325MG TABLET PO PRN (17:45)
[2018-11-23] MEDS ORDERED: IPRATROPIUM/ALBUTEROL 0.5-3(2.5)MG/3ML NEB INH PRN (17:45)
[2018-11-23] MEDS ORDERED: ACETAMINOPHEN 325MG TABLET PO PRN (17:45)
[2018-11-23] MEDS ORDERED: ENOXAPARIN 40MG/0.4ML SYR SUBCUT SCH (17:45)
[2018-11-23] MEDS ORDERED: LACTATED RINGERS 1,000 ML IV SCH ×2 (18:00)
[2018-11-23] MEDS: SODIUM CHLORIDE 0.45% 1,000 ML IV SCH (20:20)
[2018-11-23 21:42] LABS: CHLORIDE 108 mEq/L (98-107)
[2018-11-23 23:23] LABS: BG BASE EXCESS -0.8 mmol/L (-2.0-2.0); BG CARBOXYHEMOGLOBIN 0.2 % (0.5-1.5); BG DEOXYHEMOGLOBIN 4.1 % (0.0-5.0); BG FRACTION INSPIRED OXYGEN 21; BG HCO3 ACT 24.1 mmol/L (22.0-26.0); BG METHEMOGLOBIN 0.2 % (0.0-1.5); BG OXYGEN SATURATION 95.9 % (92.0-98.5); BG OXYHEMOGLOBIN 95.5 % (94.0-97.0); BG PCO2 40.9 mmHg (35.0-45.0); BG PH 7.389 (7.350-7.450); BG PO2 82.8 mmHg (75.0-100.0); BG SAMPLE SITE LEFT RADIAL; BG TOTAL HEMOGLOBIN 10.6 g/dL (12.0-18.0); BG VENT MODE ROOM AIR
[2018-11-24] MEDS ORDERED: LEVOFLOXACIN 500MG PREMIX 100 ML IV NR (03:00)
[2018-11-24 06:41] LABS: CHLORIDE 102 mEq/L (98-107)
[2018-11-24 06:48] LABS: HEMATOCRIT. 37.8 % (42.0-52.0); MEAN CORPUSCULAR HEMOGLOBIN 18.9 pg (28.0-32.0); MEAN CORPUSCULAR VOLUME 65.2 fL (80.0-94.0); MEAN PLATELET VOLUME 8.8 fl (7.4-10.4); PLATELET 319 x1000/uL (130-400)
[2018-11-24 06:50] LABS: LDL CHOLESTEROL 81 mg/dL (5-100)
[2018-11-24 06:52] LABS: HDL CHOLESTEROL 63 mg/dL (40-59); T4 FREE 1.21 ng/dL (0.76-1.46)
[2018-11-24] MEDS: SODIUM CHLORIDE 0.45% 1,000 ML IV SCH ×3 (07:28→23:00)
[2018-11-24 08:20] LABS: PLATELET ESTIMATE NORMAL
[2018-11-24] MEDS ORDERED: ASPIRIN 81MG EC TABLET PO SCH (09:00)
[2018-11-24] MEDS: MORPHINE SULFATE 4 MG/ML CPJ (NOT FOR IM USE) IV PRN ×2 (10:22→15:39)
[2018-11-24] MEDS: ONDANSETRON HCL 4MG/2ML INJ IV PRN ×2 (10:22→15:39)
[2018-11-24] MEDS ORDERED: METOCLOPRAMIDE HCL 10MG/2ML VIAL IV SCH (13:00)
[2018-11-24 13:30] LABS: CHLORIDE 101 mEq/L (98-107)
[2018-11-24] MEDS ORDERED: CLONIDINE 0.1MG TABLET PO PRN (16:32)
[2018-11-24] MEDS ORDERED: INSULIN GLARGINE UD 100 UNITS/ML SYR SUBCUT SCH (17:30)
[2018-11-24] MEDS ORDERED: IPRATROPIUM/ALBUTEROL 0.5-3(2.5)MG/3ML NEB HHN SCH ×2 (18:00→19:30)
[2018-11-24] MEDS ORDERED: INSULIN REGULAR (DRIP) 100 UNITS in SODIUM CHLORIDE 0.9% 100 ML IV SCH (18:15)
[2018-11-24] MEDS ORDERED: HYDRALAZINE 20MG/ML VIAL IV PRN (19:15)
[2018-11-24 20:00] VITALS: BP 149/101
[2018-11-24] MEDS: ASPIRIN 81MG EC TABLET PO SCH (20:00)
[2018-11-24] MEDS ORDERED: DEXTROSE 50% WATER 50ML SYRINGE IV PRN (20:15)
[2018-11-24] MEDS: METOCLOPRAMIDE HCL 10MG/2ML VIAL IV SCH ×2 (20:28→23:28)
[2018-11-24] MEDS: AMLODIPINE 5MG TABLET PO SCH (20:28)
[2018-11-24] MEDS: LOSARTAN POTASSIUM 25 MG TABLET PO SCH (20:29)
[2018-11-24 22:00] VITALS: BP 145/92
[2018-11-24] MEDS: INSULIN LISPRO 100 UNITS/ML SUBCUT SCH (23:27)
[2018-11-24] MEDS: BLOOD SUGAR DIAGNOSTIC STRIP TEST SCH (23:28)
[2018-11-25] VITALS: BP 142/83
[2018-11-25 02:00] VITALS: BP 124/69
[2018-11-25 04:00] VITALS: BP 149/79
[2018-11-25] MEDS: BLOOD SUGAR DIAGNOSTIC STRIP TEST SCH ×4 (05:40→23:11)
[2018-11-25] MEDS: METOCLOPRAMIDE HCL 10MG/2ML VIAL IV SCH ×4 (05:43→23:22)
[2018-11-25] MEDS: INSULIN LISPRO 100 UNITS/ML SUBCUT SCH ×4 (05:44→23:22)
[2018-11-25 06:00] VITALS: BP 121/72
[2018-11-25] MEDS ORDERED: LEVOFLOXACIN 500MG PREMIX 100 ML IV SCH (06:00)
[2018-11-25] MEDS: SODIUM CHLORIDE 0.45% 1,000 ML IV SCH ×4 (06:01→23:21)
[2018-11-25] MEDS: AMLODIPINE 5MG TABLET PO SCH ×2 (09:09→21:12)
[2018-11-25] MEDS: ASPIRIN 81MG EC TABLET PO SCH (09:09)
[2018-11-25] MEDS: LOSARTAN POTASSIUM 25 MG TABLET PO SCH ×2 (09:09→21:12)
[2018-11-25] MEDS: ENOXAPARIN 40MG/0.4ML SYR SUBCUT SCH (10:15)
[2018-11-25 20:00] VITALS: BP 150/75
[2018-11-25 22:00] VITALS: BP 116/77
[2018-11-25] MEDS ORDERED: INSULIN LISPRO 100 UNITS/ML SUBCUT NR (23:43)
[2018-11-26] VITALS (8 sets, daily range): BP systolic 108–143; BP diastolic 46–79
[2018-11-26] MEDS: METOCLOPRAMIDE HCL 10MG/2ML VIAL IV SCH ×2 (05:16→12:51)
[2018-11-26] MEDS: BLOOD SUGAR DIAGNOSTIC STRIP TEST SCH ×2 (05:16→12:00)
[2018-11-26] MEDS: SODIUM CHLORIDE 0.45% 1,000 ML IV SCH ×2 (05:17→08:45)
[2018-11-26] MEDS: INSULIN LISPRO 100 UNITS/ML SUBCUT SCH ×2 (05:23→12:51)
[2018-11-26 05:58] LABS: CHLORIDE 104 mEq/L (98-107)
[2018-11-26] MEDS ORDERED: LEVOFLOXACIN 500MG PREMIX 100 ML IV SCH (06:00)
[2018-11-26 06:13] LABS: BASOPHILS % 0.7 % (0.0-2.0); EOSINOPHILS % 0.1 % (0.0-5.0); HEMATOCRIT. 34.9 % (42.0-52.0); HEMOGLOBIN. 10.6 g/dL (14.0-18.0); LYMPHOCYTES % 26.9 % (20.0-50.0); MEAN CORPUSCULAR HEMOGLOBIN 19.3 pg (28.0-32.0); MEAN CORPUSCULAR VOLUME 63.5 fL (80.0-94.0); MEAN PLATELET VOLUME 8.8 fl (7.4-10.4); MONOCYTES % 10.8 % (2.0-8.0); NEUTROPHILS % 61.5 % (40.0-76.0); PLATELET 289 x1000/uL (130-400); RED CELL DISTRIBUTION WIDTH 24.5 % (11.6-14.6)
[2018-11-26] MEDS: ASPIRIN 81MG EC TABLET PO SCH (08:44)
[2018-11-26] MEDS: ENOXAPARIN 40MG/0.4ML SYR SUBCUT SCH (08:44)
[2018-11-26] MEDS: LOSARTAN POTASSIUM 25 MG TABLET PO SCH (08:44)
[2018-11-26] MEDS: AMLODIPINE 5MG TABLET PO SCH (08:44)
[2018-11-26] MEDS ORDERED: POTASSIUM CHLORIDE 20MEQ TABLET SR PO NR (12:45)
== END 2018-11-26 15:16 | disposition home or self-care (01) | DRG 48 ==
LOC: ER 12:34 → EDBEDREQ 14:37 → EDBEDREQSVC 11-24 15:02 → ENRESERV 11-24 15:43 → ER 11-24 18:03 → 5EST 11-24 18:54
PROVIDERS: ADMIT Internal Medicine; ATTEND Internal Medicine
DX: E10.43 Type 1 diabetes mellitus with diabetic autonomic (poly)neuropathy (principal); R65.10 Systemic inflammatory response syndrome (SIRS) of non-infectious origin without acute organ dysfunction; E46 Unspecified protein-calorie malnutrition; K22.10 Ulcer of esophagus without bleeding; E10.10 Type 1 diabetes mellitus with ketoacidosis without coma; K31.84 Gastroparesis; F17.200 Nicotine dependence, unspecified, uncomplicated; E86.0 Dehydration; I10 Essential (primary) hypertension; K29.70 Gastritis, unspecified, without bleeding; Z59.0 Homelessness; Z68.1 Body mass index [BMI] 19.9 or less, adult; Z79.4 Long term (current) use of insulin; Z91.14 Patient's other noncompliance with medication regimen; Z87.19 Personal history of other diseases of the digestive system; Z91.19 Patient's noncompliance with other medical treatment and regimen
CPT/HCPCS: 36415; 36600; 71045; 80048; 80061; 80305; 82010; 82375; 82805; 82962; 83735; 84100; 84439; 84443; 84484; 87804; 93005; 96361; 96374; 96375; 99291; G0482; J1650; J1815; J1956; J2060; J2270; J2405; J2765; J7030; J7050; J7620

== ENCOUNTER 2018-12-18 21:40 | Emergency (ER) | payer MEDICAID | END 2018-12-18 23:08 | disposition left against medical advice (07) | LOC: ER 21:40 | DX: R10.9 Unspecified abdominal pain (principal); Z53.21 Procedure and treatment not carried out due to patient leaving prior to being seen by health care provider ==

== ENCOUNTER 2018-12-19 05:48 | Emergency (ER) | payer MEDICAID ==
[~2018-12-19] VITALS: Ht 175.3 cm; Wt 66.0 kg
[2018-12-19 07:53] VITALS: BP 118/81
== END 2018-12-19 09:39 | disposition left against medical advice (07) ==
LOC: ER 05:48
DX: Z53.21 Procedure and treatment not carried out due to patient leaving prior to being seen by health care provider (principal)

== ENCOUNTER 2019-01-07 16:33 | Inpatient (IN) | payer MEDICAID ==
[~2019-01-07] VITALS: Ht 175.3 cm; Wt 58.1 kg
[2019-01-07] MEDS ORDERED: MORPHINE SULFATE 2 MG/ML CPJ (NOT FOR IM USE) IV ONE (17:15)
[2019-01-07] MEDS ORDERED: SODIUM CHLORIDE 0.9% 1000ML BAG (SEPSIS BOLUS) IV ONE (17:15)
[2019-01-07] MEDS ORDERED: INSULIN REGULAR (HUMULIN R) UD 100 UNITS/ML SYR SUBCUT ONE (17:15)
[2019-01-07 17:35] LABS: BASOPHILS % 0.6 % (0.0-2.0); EOSINOPHILS % 0.1 % (0.0-5.0); HEMOGLOBIN. 12.3 g/dL (14.0-18.0); LYMPHOCYTES % 11.2 % (20.0-50.0); MEAN CORPUSCULAR HEMOGLOBIN 19.3 pg (28.0-32.0); MEAN CORPUSCULAR VOLUME 65.7 fL (80.0-94.0); MONOCYTES % 2.9 % (2.0-8.0); NEUTROPHILS % 85.2 % (40.0-76.0); PLATELET 481 x1000/uL (130-400); RED BLOOD CELL COUNT 6.39 mill/uL (4.7-6.1); RED CELL DISTRIBUTION WIDTH 22.5 % (11.6-14.6)
[2019-01-07 17:38] LABS: CHLORIDE 95 mEq/L (98-107)
[2019-01-07 17:41] LABS: PARTIAL THROMBOPLASTIN TIME 20.5 sec (23.4-31.0)
[2019-01-07] MEDS ORDERED: MORPHINE SULFATE 4 MG/ML CPJ (NOT FOR IM USE) IV NR (17:43)
[2019-01-07 17:44] LABS: BETA HYDROXYBUTYRATE 5.5 mMol/L (0.0-0.3)
[2019-01-07] MEDS ORDERED: INSULIN REGULAR (HUMULIN R) 300UNITS/3ML SUBCUT NR (17:46)
[2019-01-07 17:48] LABS: BG BASE EXCESS -10.2 mmol/L (-2.0-2.0); BG CARBOXYHEMOGLOBIN 0.9 % (0.5-1.5); BG DEOXYHEMOGLOBIN 3.1 % (0.0-5.0); BG FRACTION INSPIRED OXYGEN 21; BG HCO3 ACT 15.2 mmol/L (22.0-26.0); BG METHEMOGLOBIN 0.3 % (0.0-1.5); BG OXYGEN SATURATION 96.9 % (92.0-98.5); BG OXYHEMOGLOBIN 95.7 % (94.0-97.0); BG PCO2 32.2 mmHg (35.0-45.0); BG PH 7.292 (7.350-7.450); BG PO2 95.5 mmHg (75.0-100.0); BG SAMPLE SITE RIGHT BRACHIAL; BG TOTAL HEMOGLOBIN 11.9 g/dL (12.0-18.0); BG VENT MODE ROOM AIR
[2019-01-07 18:15] LABS: PLATELET ESTIMATE NORMAL
[2019-01-07] MEDS ORDERED: SODIUM CHLORIDE 0.9% 1,000 ML IV STA (18:26)
[2019-01-07] MEDS ORDERED: LEVOFLOXACIN 750MG PREMIX 150 ML IV ONE (18:30)
[2019-01-07] MEDS ORDERED: INSULIN REGULAR (HUMULIN R) UD 100 UNITS/ML SYR IV ONE (18:30)
[2019-01-07] MEDS ORDERED: INSULIN REGULAR (DRIP) 100 UNITS in SODIUM CHLORIDE 0.9% 99 ML IV NR (18:34)
[2019-01-07 18:38] LABS: CLARITY URINE CLEAR (CLEAR); COLOR URINE YELLOW (YELLOW); KETONES URINE 4+ (NEGATIVE); LEUKOCYTE ESTERASE URINE NEGATIVE (NEGATIVE); NITRITE URINE NEGATIVE (NEGATIVE); OCCULT BLOOD URINE NEGATIVE (NEGATIVE); PROTEIN URINE NEGATIVE (NEGATIVE); SPECIFIC GRAVITY URINE 1.027 (1.005-1.030); UROBILINOGEN URINE 0.2 E.U./dL (0.2-1.0)
[2019-01-07] MEDS ORDERED: SODIUM CHLORIDE 0.9% 1,000 ML IV SCH (19:04)
[2019-01-07] MEDS ORDERED: INSULIN REGULAR (DRIP) 100 UNITS in SODIUM CHLORIDE 0.9% 100 ML IV SCH (19:15)
[2019-01-07] MEDS ORDERED: IPRATROPIUM/ALBUTEROL 0.5-3(2.5)MG/3ML NEB INH PRN (19:15)
[2019-01-07] MEDS ORDERED: MAGNESIUM/ALUMINUM HYDROXIDE/SIMETHICONE 30ML UDC PO PRN (19:15)
[2019-01-07] MEDS ORDERED: DOCUSATE SODIUM 100MG CAPSULE PO PRN (19:15)
[2019-01-07] MEDS ORDERED: ACETAMINOPHEN 325MG TABLET PO PRN (19:15)
[2019-01-07 20:18] LABS: CHLORIDE 108 mEq/L (98-107)
[2019-01-07 20:24] LABS: PHOSPHORUS 3.3 mg/dL (2.5-4.9)
[2019-01-07 20:26] LABS: CREATINE KINASE 92 IU/L (39-308)
[2019-01-07 20:29] LABS: CREATINE KINASE MB FRACTION < 1.0 ng/mL (0.5-3.6)
[2019-01-07] MEDS: HYDROCODONE/ACETAMINOPHEN 5/325MG TABLET PO PRN (21:22)
[2019-01-07] MEDS: ONDANSETRON HCL 4MG/2ML INJ IV PRN (21:22)
[2019-01-08 01:04] LABS: CHLORIDE 112 mEq/L (98-107)
[2019-01-08 01:09] LABS: PHOSPHORUS 3.5 mg/dL (2.5-4.9)
[2019-01-08 04:52] LABS: CHLORIDE 111 mEq/L (98-107)
[2019-01-08 05:01] LABS: CREATINE KINASE 63 IU/L (39-308)
[2019-01-08 05:02] LABS: CREATINE KINASE MB FRACTION < 1.0 ng/mL (0.5-3.6)
[2019-01-08] MEDS: HYDROCODONE/ACETAMINOPHEN 5/325MG TABLET PO PRN ×2 (06:31→12:20)
[2019-01-08] MEDS: ONDANSETRON HCL 4MG/2ML INJ IV PRN ×2 (07:06→13:02)
[2019-01-08] MEDS ORDERED: DEXT 5%/0.45% NACL 1000ML 1,000 ML IV SCH (09:30)
[2019-01-08] MEDS ORDERED: INSULIN GLARGINE UD 100 UNITS/ML SYR SUBCUT SCH (09:30)
[2019-01-08 12:00] VITALS: BP 159/89
[2019-01-08] MEDS: ENOXAPARIN 40MG/0.4ML SYR SUBCUT SCH (12:09)
[2019-01-08] MEDS ORDERED: METOCLOPRAMIDE HCL 10MG/2ML VIAL IV PRN (12:15)
[2019-01-08] MEDS ORDERED: INSULIN LISPRO 100 UNITS/ML SUBCUT SCH (12:20)
[2019-01-08] MEDS ORDERED: INSULIN LISPRO 100 UNITS/ML SUBCUT NR (13:00)
[2019-01-08] MEDS: PANTOPRAZOLE 40MG DR TABLET PO SCH (13:02)
[2019-01-08] MEDS: CLONIDINE 0.1MG TABLET PO PRN (13:32)
[2019-01-08 13:37] LABS: TOTAL IRON BINDING CAPACITY 417 ug/dL (250-450)
[2019-01-08] MEDS ORDERED: INSULIN GLARGINE UD 100 UNITS/ML SYR SUBCUT NR ×2 (14:00→22:00)
[2019-01-08 14:06] LABS: FERRITIN 6 ng/mL (22-322); VITAMIN B12 SERUM 495 pg/mL (211-911)
[2019-01-08 14:28] LABS: FOLIC ACID (FOLATE) SERUM > 20.00 ng/mL (>5.38)
[2019-01-08 15:52] LABS: *AMPHETAMINES SCREEN URINE NEGATIVE (NEGATIVE)
[2019-01-08 15:53] LABS: *BARBITURATES SCREEN URINE NEGATIVE (NEGATIVE); *BENZODIAZEPINES SCREEN URINE NEGATIVE (NEGATIVE); *COCAINE SCREEN URINE NEGATIVE (NEGATIVE); METHADONE URINE SCREEN NEGATIVE (NEGATIVE); OPIATES URINE SCREEN NEGATIVE (NEGATIVE); PHENCYCLIDINE URINE SCREEN NEGATIVE (NEGATIVE)
[2019-01-08 15:54] LABS: CANNABINOID URINE SCREEN PRESUMTIVE POSITIVE (NEGATIVE)
[2019-01-08 16:00] VITALS: BP 112/64
[2019-01-08 20:00] VITALS: BP 115/70
[2019-01-08] MEDS: SODIUM CHLORIDE 0.9% 1,000 ML IV SCH (20:28)
[2019-01-08] MEDS: INSULIN LISPRO 100 UNITS/ML SUBCUT SCH (20:45)
[2019-01-09 01:46] LABS: CHLORIDE 105 mEq/L (98-107)
[2019-01-09 04:00] VITALS: BP 156/98
[2019-01-09] MEDS: HYDROCODONE/ACETAMINOPHEN 5/325MG TABLET PO PRN ×2 (05:58→15:43)
[2019-01-09] MEDS: PANTOPRAZOLE 40MG DR TABLET PO SCH (06:35)
[2019-01-09] MEDS: INSULIN LISPRO 100 UNITS/ML SUBCUT SCH ×7 (06:36→20:33)
[2019-01-09] MEDS: SODIUM CHLORIDE 0.9% 1,000 ML IV SCH ×2 (06:38→11:49)
[2019-01-09 06:43] LABS: EOSINOPHILS % 0.3 % (0.0-5.0); HEMATOCRIT. 33.7 % (42.0-52.0); HEMOGLOBIN. 10.2 g/dL (14.0-18.0); LYMPHOCYTES % 31.5 % (20.0-50.0); MEAN CORPUSCULAR HEMOGLOBIN 19.1 pg (28.0-32.0); MEAN CORPUSCULAR VOLUME 63.1 fL (80.0-94.0); MEAN PLATELET VOLUME 8.6 fl (7.4-10.4); MONOCYTES % 6.3 % (2.0-8.0); NEUTROPHILS % 60.9 % (40.0-76.0); PLATELET 402 x1000/uL (130-400); RED BLOOD CELL COUNT 5.34 mill/uL (4.7-6.1); RED CELL DISTRIBUTION WIDTH 21.6 % (11.6-14.6)
[2019-01-09] MEDS: BLOOD SUGAR DIAGNOSTIC STRIP TEST SCH ×4 (07:00→20:21)
[2019-01-09 07:14] LABS: CHLORIDE 107 mEq/L (98-107)
[2019-01-09 08:00] VITALS: BP 140/97
[2019-01-09] MEDS: ENOXAPARIN 40MG/0.4ML SYR SUBCUT SCH (08:14)
[2019-01-09] MEDS ORDERED: INSULIN GLARGINE UD 100 UNITS/ML SYR SUBCUT SCH ×3 (10:00→22:00)
[2019-01-09 11:06] VITALS: BP 130/95
[2019-01-09 15:25] VITALS: BP 135/94
[2019-01-09 16:01] LABS: CHLORIDE 102 mEq/L (98-107)
[2019-01-09 20:00] VITALS: BP 136/91
[2019-01-09] MEDS: INSULIN GLARGINE UD 100 UNITS/ML SYR SUBCUT SCH (21:27)
[2019-01-10] VITALS (7 sets, daily range): BP systolic 111–152; BP diastolic 77–98
[2019-01-10] MEDS: CLONIDINE 0.1MG TABLET PO PRN (06:27)
[2019-01-10] MEDS: INSULIN LISPRO 100 UNITS/ML SUBCUT SCH ×7 (06:28→21:00)
[2019-01-10 07:52] LABS: BASOPHILS % 2.2 % (0.0-2.0); EOSINOPHILS % 0.2 % (0.0-5.0); HEMOGLOBIN. 9.8 g/dL (14.0-18.0); LYMPHOCYTES % 35.1 % (20.0-50.0); MEAN CORPUSCULAR HEMOGLOBIN 19.7 pg (28.0-32.0); MEAN CORPUSCULAR VOLUME 62.7 fL (80.0-94.0); MONOCYTES % 8.7 % (2.0-8.0); NEUTROPHILS % 53.8 % (40.0-76.0); PLATELET 378 x1000/uL (130-400); RED BLOOD CELL COUNT 4.94 mill/uL (4.7-6.1); RED CELL DISTRIBUTION WIDTH 21.2 % (11.6-14.6)
[2019-01-10] MEDS: BLOOD SUGAR DIAGNOSTIC STRIP TEST SCH ×4 (08:11→21:10)
[2019-01-10] MEDS: ENOXAPARIN 40MG/0.4ML SYR SUBCUT SCH (08:15)
[2019-01-10] MEDS: FAMOTIDINE 20MG TABLET PO SCH ×2 (08:15→17:00)
[2019-01-10 09:22] LABS: CHLORIDE 106 mEq/L (98-107)
[2019-01-10] MEDS: SODIUM CHLORIDE 0.9% 1,000 ML IV SCH ×2 (10:33→22:01)
[2019-01-10] MEDS: HYDROCODONE/ACETAMINOPHEN 5/325MG TABLET PO PRN (10:34)
[2019-01-10] MEDS: INSULIN GLARGINE UD 100 UNITS/ML SYR SUBCUT SCH ×2 (10:37→21:37)
[2019-01-11] VITALS: BP 131/87
[2019-01-11 04:00] VITALS: BP 129/87
[2019-01-11 07:12] LABS: EOSINOPHILS % 0.5 % (0.0-5.0); HEMOGLOBIN. 10.7 g/dL (14.0-18.0); LYMPHOCYTES % 46.4 % (20.0-50.0); MEAN CORPUSCULAR HEMOGLOBIN 19.3 pg (28.0-32.0); MEAN CORPUSCULAR VOLUME 63.3 fL (80.0-94.0); MEAN PLATELET VOLUME 8.6 fl (7.4-10.4); MONOCYTES % 10.9 % (2.0-8.0); NEUTROPHILS % 41.2 % (40.0-76.0); PLATELET 393 x1000/uL (130-400); RED BLOOD CELL COUNT 5.54 mill/uL (4.7-6.1); RED CELL DISTRIBUTION WIDTH 21.7 % (11.6-14.6)
[2019-01-11 07:30] LABS: CHLORIDE 107 mEq/L (98-107)
[2019-01-11] MEDS: BLOOD SUGAR DIAGNOSTIC STRIP TEST SCH ×2 (07:46→12:20)
[2019-01-11 08:00] VITALS: BP 139/99
[2019-01-11] MEDS: ENOXAPARIN 40MG/0.4ML SYR SUBCUT SCH ×2 (08:20→09:00)
[2019-01-11] MEDS: FAMOTIDINE 20MG TABLET PO SCH (08:20)
[2019-01-11] MEDS: INSULIN LISPRO 100 UNITS/ML SUBCUT SCH ×3 (08:22→12:50)
[2019-01-11] MEDS: SODIUM CHLORIDE 0.9% 1,000 ML IV SCH (10:28)
[2019-01-11 12:00] VITALS: BP 134/85
[2019-01-11] MEDS: INSULIN GLARGINE UD 100 UNITS/ML SYR SUBCUT SCH (12:03)
[2019-01-11] MEDS ORDERED: INSLIS SUBCUT ×2 (13:30→13:55)
[2019-01-11] MEDS ORDERED: METO-293 MT (13:30)
[2019-01-11] MEDS ORDERED: LANTUSUD SUBCUT ×2 (13:55)
[2019-01-11 14:58] VITALS: BP 129/85
[2019-01-11] MEDS ORDERED: INSULIN LISPRO 100 UNITS/ML SUBCUT SCH (17:20)
[2019-01-11] MEDS ORDERED: INSULIN GLARGINE UD 100 UNITS/ML SYR SUBCUT SCH (22:00)
[2019-01-12] MEDS ORDERED: INSULIN GLARGINE UD 100 UNITS/ML SYR SUBCUT SCH (10:00)
== END 2019-01-11 16:46 | disposition home or self-care (01) | DRG 48 ==
LOC: ER 16:33 → 6WST 18:48 → EDBEDREQ 18:51 → EDBEDREQSVC 18:51 → ENRESERV 01-08 08:49
PROVIDERS: ADMIT Internal Medicine; ATTEND Internal Medicine
DX: E10.43 Type 1 diabetes mellitus with diabetic autonomic (poly)neuropathy (principal); E87.5 Hyperkalemia; K76.0 Fatty (change of) liver, not elsewhere classified; E10.10 Type 1 diabetes mellitus with ketoacidosis without coma; K31.84 Gastroparesis; R74.0 Nonspecific elevation of levels of transaminase and lactic acid dehydrogenase [LDH]; I10 Essential (primary) hypertension; D50.9 Iron deficiency anemia, unspecified; Z59.0 Homelessness; Z91.19 Patient's noncompliance with other medical treatment and regimen
CPT/HCPCS: 36415; 36600; 71045; 76700; 80048; 80076; 80305; 82010; 82375; 82550; 82553; 82607; 82728; 82746; 82805; 82962; 83036; 83540; 83550; 83605; 83735; 84100; 84145; 84443; 84484; 93005; 96365; 96366; 96375; 99291; J1650; J1815; J1956; J2270; J2405; J7030; J7050

== ENCOUNTER 2019-01-15 06:22 | Inpatient (IN) | payer MEDICAID ==
[~2019-01-15] VITALS: Ht 175.3 cm; Wt 60.8 kg
[~2019-01-15 06:22] MED LIST changes: -INSU100I28 SQ; +LANTUSUD SUBCUT; +METO-293 MT
[2019-01-15] MEDS ORDERED: SODIUM CHLORIDE 0.9% 1,000 ML IV ONE ×2 (07:07→10:00)
[2019-01-15 08:55] LABS: HEMATOCRIT. 35.2 % (42.0-52.0); HEMOGLOBIN. 10.6 g/dL (14.0-18.0); MEAN CORPUSCULAR HEMOGLOBIN 19.2 pg (28.0-32.0); MEAN CORPUSCULAR VOLUME 63.5 fL (80.0-94.0); MEAN PLATELET VOLUME 9.1 fl (7.4-10.4); PLATELET 402 x1000/uL (130-400); RED BLOOD CELL COUNT 5.55 mill/uL (4.7-6.1); RED CELL DISTRIBUTION WIDTH 21.2 % (11.6-14.6)
[2019-01-15 08:59] LABS: CHLORIDE 98 mEq/L (98-107)
[2019-01-15 09:01] LABS: PROTHROMBIN TIME 10.5 sec (9.1-11.1)
[2019-01-15 09:13] LABS: BETA HYDROXYBUTYRATE 2.5 mMol/L (0.0-0.3)
[2019-01-15 09:30] LABS: CLARITY URINE CLEAR (CLEAR); COLOR URINE YELLOW (YELLOW); KETONES URINE 2+ (NEGATIVE); LEUKOCYTE ESTERASE URINE NEGATIVE (NEGATIVE); NITRITE URINE NEGATIVE (NEGATIVE); OCCULT BLOOD URINE NEGATIVE (NEGATIVE); PROTEIN URINE NEGATIVE (NEGATIVE); SPECIFIC GRAVITY URINE 1.019 (1.005-1.030); UROBILINOGEN URINE 0.2 E.U./dL (0.2-1.0)
[2019-01-15 09:54] LABS: PLATELET ESTIMATE SLIGHTLY INCREASED
[2019-01-15] MEDS ORDERED: INSULIN REGULAR (HUMULIN R) 300UNITS/3ML SUBCUT ONE (10:00)
[2019-01-15 22:15] VITALS: BP 146/99
[2019-01-15] MEDS ORDERED: ACETAMINOPHEN 325MG TABLET PO PRN (23:00)
[2019-01-15] MEDS ORDERED: INSULIN GLARGINE UD 100 UNITS/ML SYR SUBCUT NR (23:30)
[2019-01-15] MEDS: ONDANSETRON HCL 4MG/2ML INJ IV PRN (23:47)
[2019-01-16] VITALS (7 sets, daily range): BP systolic 132–174; BP diastolic 65–108
[2019-01-16] MEDS: SODIUM CHLORIDE 0.9% 1,000 ML IV SCH ×3 (00:03→21:12)
[2019-01-16] MEDS: MORPHINE SULFATE 4 MG/ML CPJ (NOT FOR IM USE) IV PRN ×5 (00:52→21:41)
[2019-01-16] MEDS: ONDANSETRON HCL 4MG/2ML INJ IV PRN (05:19)
[2019-01-16] MEDS: INSULIN LISPRO 100 UNITS/ML SUBCUT SCH ×4 (06:48→21:08)
[2019-01-16] MEDS ORDERED: INSULIN LISPRO 5 UNIT SUBCUT SCH (07:20)
[2019-01-16 07:31] LABS: CHLORIDE 102 mEq/L (98-107)
[2019-01-16 07:34] LABS: HEMATOCRIT. 38.5 % (42.0-52.0); HEMOGLOBIN. 11.7 g/dL (14.0-18.0); MEAN CORPUSCULAR HEMOGLOBIN 19.3 pg (28.0-32.0); MEAN CORPUSCULAR VOLUME 63.2 fL (80.0-94.0); MEAN PLATELET VOLUME 9.4 fl (7.4-10.4); PLATELET 500 x1000/uL (130-400); RED BLOOD CELL COUNT 6.09 mill/uL (4.7-6.1); RED CELL DISTRIBUTION WIDTH 20.9 % (11.6-14.6)
[2019-01-16 13:57] LABS: PLATELET ESTIMATE INCREASED
[2019-01-16] MEDS ORDERED: DEXTROSE 50% WATER 50ML SYRINGE IV PRN (20:00)
[2019-01-16] MEDS: ENOXAPARIN 40MG/0.4ML SYR SUBCUT SCH ×3 (21:00→21:10)
[2019-01-16] MEDS: BLOOD SUGAR DIAGNOSTIC STRIP TEST SCH (21:09)
[2019-01-16] MEDS: INSULIN GLARGINE UD 100 UNITS/ML SYR SUBCUT SCH (21:09)
[2019-01-17] VITALS: BP_SYST 131; BP_SYST 132; BP_DIAS 51; BP_DIAS 89
[2019-01-17] MEDS: MORPHINE SULFATE 4 MG/ML CPJ (NOT FOR IM USE) IV PRN ×4 (01:55→20:04)
[2019-01-17 04:00] VITALS: BP 146/105
[2019-01-17] MEDS: BLOOD SUGAR DIAGNOSTIC STRIP TEST SCH ×4 (06:23→21:20)
[2019-01-17] MEDS: INSULIN LISPRO 100 UNITS/ML SUBCUT SCH ×7 (06:23→21:00)
[2019-01-17 07:29] VITALS: BP 138/89
[2019-01-17] MEDS: SODIUM CHLORIDE 0.9% 1,000 ML IV SCH ×2 (11:51→14:50)
[2019-01-17 13:40] LABS: HEMATOCRIT. 34.6 % (42.0-52.0); HEMOGLOBIN. 10.5 g/dL (14.0-18.0); MEAN CORPUSCULAR HEMOGLOBIN 18.9 pg (28.0-32.0); MEAN CORPUSCULAR VOLUME 62.5 fL (80.0-94.0); MEAN PLATELET VOLUME 8.8 fl (7.4-10.4); PLATELET 428 x1000/uL (130-400); RED BLOOD CELL COUNT 5.54 mill/uL (4.7-6.1); RED CELL DISTRIBUTION WIDTH 21.2 % (11.6-14.6)
[2019-01-17 13:42] LABS: CHLORIDE 103 mEq/L (98-107)
[2019-01-17 14:10] LABS: PLATELET ESTIMATE INCREASED
[2019-01-17 20:00] VITALS: BP 141/104
[2019-01-17] MEDS: INSULIN GLARGINE UD 100 UNITS/ML SYR SUBCUT SCH (21:20)
[2019-01-17] MEDS: ENOXAPARIN 40MG/0.4ML SYR SUBCUT SCH (21:20)
[2019-01-18] VITALS: BP 147/100
[2019-01-18] MEDS: MORPHINE SULFATE 4 MG/ML CPJ (NOT FOR IM USE) IV PRN ×3 (00:26→09:32)
[2019-01-18] MEDS: SODIUM CHLORIDE 0.9% 1,000 ML IV SCH ×2 (00:32→11:12)
[2019-01-18 04:00] VITALS: BP 138/93
[2019-01-18] MEDS: INSULIN LISPRO 100 UNITS/ML SUBCUT SCH ×4 (06:44→13:01)
[2019-01-18] MEDS: BLOOD SUGAR DIAGNOSTIC STRIP TEST SCH ×2 (06:44→12:20)
[2019-01-18 07:39] LABS: BASOPHILS % 1.8 % (0.0-2.0); EOSINOPHILS % 0.2 % (0.0-5.0); HEMATOCRIT. 33.1 % (42.0-52.0); HEMOGLOBIN. 10.1 g/dL (14.0-18.0); LYMPHOCYTES % 49.5 % (20.0-50.0); MEAN CORPUSCULAR HEMOGLOBIN 18.9 pg (28.0-32.0); MEAN PLATELET VOLUME 9.1 fl (7.4-10.4); MONOCYTES % 12.1 % (2.0-8.0); NEUTROPHILS % 36.4 % (40.0-76.0); PLATELET 395 x1000/uL (130-400); RED BLOOD CELL COUNT 5.33 mill/uL (4.7-6.1); RED CELL DISTRIBUTION WIDTH 20.8 % (11.6-14.6)
[2019-01-18 07:57] LABS: CHLORIDE 107 mEq/L (98-107)
[2019-01-18 08:43] VITALS: BP 127/85
[2019-01-18] MEDS ORDERED: LISINOPRIL 10MG TABLET PO SCH (12:00)
[2019-01-18 12:18] VITALS: BP 149/100
[2019-01-18 13:24] VITALS: BP 149/100
[2019-01-18] MEDS ORDERED: POTASSIUM CHLORIDE 20MEQ TABLET SR PO NR (16:00)
== END 2019-01-18 15:59 | disposition home or self-care (01) | DRG 241 ==
LOC: ER 06:22 → 6WST 10:30 → EDBEDREQTM 10:34 → EDBEDREQ 10:34 → ENRESERV 20:40
PROVIDERS: ADMIT Internal Medicine; ATTEND Internal Medicine
DX: K29.70 Gastritis, unspecified, without bleeding (principal); E10.10 Type 1 diabetes mellitus with ketoacidosis without coma; E10.69 Type 1 diabetes mellitus with other specified complication; K31.9 Disease of stomach and duodenum, unspecified; D64.9 Anemia, unspecified; I10 Essential (primary) hypertension; Z91.19 Patient's noncompliance with other medical treatment and regimen; Z83.3 Family history of diabetes mellitus; Z79.4 Long term (current) use of insulin; Z59.0 Homelessness; Z91.14 Patient's other noncompliance with medication regimen
CPT/HCPCS: 36415; 71045; 74176; 80048; 82010; 82962; 83036; 83605; 84484; 85044; 86850; 86900; 93005; 93970; 96361; 96374; 99285; J1650; J1815; J2270; J2405; J7030

== ENCOUNTER 2019-01-28 13:29 | Inpatient (IN) | payer MEDICAID, OTHER ==
[~2019-01-28] VITALS: Ht 175.3 cm; Wt 63.0 kg
[2019-01-28 15:25] LABS: CLARITY URINE CLEAR (CLEAR); COLOR URINE YELLOW (YELLOW); KETONES URINE 3+ (NEGATIVE); LEUKOCYTE ESTERASE URINE NEGATIVE (NEGATIVE); NITRITE URINE NEGATIVE (NEGATIVE); OCCULT BLOOD URINE NEGATIVE (NEGATIVE); PROTEIN URINE NEGATIVE (NEGATIVE); SPECIFIC GRAVITY URINE 1.026 (1.005-1.030)
[2019-01-28] MEDS ORDERED: SODIUM CHLORIDE 0.9% 1,000 ML IV ONE ×2 (15:36→16:20)
[2019-01-28 16:00] LABS: BASOPHILS % 1.7 % (0.0-2.0); EOSINOPHILS % 0.2 % (0.0-5.0); HEMOGLOBIN. 9.9 g/dL (14.0-18.0); MEAN CORPUSCULAR VOLUME 63.4 fL (80.0-94.0); MEAN PLATELET VOLUME 8.9 fl (7.4-10.4); MONOCYTES % 5.2 % (2.0-8.0); NEUTROPHILS % 73.9 % (40.0-76.0); PLATELET 247 x1000/uL (130-400); RED CELL DISTRIBUTION WIDTH 20.3 % (11.6-14.6)
[2019-01-28 16:03] LABS: CHLORIDE 97 mEq/L (98-107)
[2019-01-28 16:05] LABS: INR 1.1; PROTHROMBIN TIME 11.4 sec (9.1-11.1)
[2019-01-28 16:11] LABS: BETA HYDROXYBUTYRATE 3.5 mMol/L (0.0-0.3)
[2019-01-28 16:16] LABS: PLATELET ESTIMATE NORMAL
[2019-01-28] MEDS ORDERED: INSULIN REGULAR (DRIP) 100 UNITS in SODIUM CHLORIDE 0.9% 99 ML IV NR (16:20)
[2019-01-28 16:43] LABS: PHOSPHORUS 3.9 mg/dL (2.5-4.9)
[2019-01-28 16:55] LABS: BG BASE EXCESS -3.1 mmol/L (-2.0-2.0); BG CARBOXYHEMOGLOBIN 1.3 % (0.5-1.5); BG FRACTION INSPIRED OXYGEN 21; BG METHEMOGLOBIN 0.3 % (0.0-1.5); BG OXYHEMOGLOBIN 96.4 % (94.0-97.0); BG PCO2 34.4 mmHg (35.0-45.0); BG PH 7.404 (7.350-7.450); BG PO2 107.9 mmHg (75.0-100.0); BG SAMPLE SITE RIGHT RADIAL; BG VENT MODE ROOM AIR
[2019-01-28] MEDS ORDERED: MORPHINE SULFATE 4 MG/ML CPJ (NOT FOR IM USE) IV ONE (17:45)
[2019-01-28] MEDS ORDERED: IPRATROPIUM/ALBUTEROL 0.5-3(2.5)MG/3ML NEB INH PRN (18:15)
[2019-01-28] MEDS ORDERED: DOCUSATE SODIUM 100MG CAPSULE PO PRN (18:15)
[2019-01-28] MEDS ORDERED: LORAZEPAM 0.5MG TABLET PO PRN (18:15)
[2019-01-28] MEDS ORDERED: ACETAMINOPHEN 325MG TABLET PO PRN (18:15)
[2019-01-28] MEDS ORDERED: ONDANSETRON HCL 4MG/2ML INJ IV PRN (18:15)
[2019-01-28 18:21] LABS: CHLORIDE 102 mEq/L (98-107)
[2019-01-28 20:22] LABS: CHLORIDE 107 mEq/L (98-107)
[2019-01-28] MEDS ORDERED: INSULIN LISPRO 100 UNITS/ML SUBCUT SCH (20:23)
[2019-01-28] MEDS ORDERED: INSULIN GLARGINE UD 100 UNITS/ML SYR SUBCUT NR (20:30)
[2019-01-28] MEDS: HYDROCODONE/ACETAMINOPHEN 5/325MG TABLET PO PRN (22:11)
[2019-01-28] MEDS: CLONIDINE 0.1MG TABLET PO PRN (22:11)
[2019-01-28 22:41] LABS: CHLORIDE 105 mEq/L (98-107)
[2019-01-28 23:30] VITALS: BP 123/86
[2019-01-29] MEDS ORDERED: DEXTROSE 50% WATER 50ML SYRINGE IV PRN
[2019-01-29 00:20] VITALS: BP 123/86
[2019-01-29] MEDS: METOCLOPRAMIDE HCL 10MG TABLET PO SCH ×5 (00:35→23:58)
[2019-01-29 00:41] LABS: CHLORIDE 105 mEq/L (98-107)
[2019-01-29 04:00] VITALS: BP 108/73
[2019-01-29] MEDS: HYDROCODONE/ACETAMINOPHEN 5/325MG TABLET PO PRN ×2 (05:11→21:09)
[2019-01-29] MEDS: BLOOD SUGAR DIAGNOSTIC STRIP TEST SCH ×4 (06:23→21:23)
[2019-01-29 07:25] LABS: BASOPHILS % 1.5 % (0.0-2.0); EOSINOPHILS % 1.2 % (0.0-5.0); HEMATOCRIT. 30.2 % (42.0-52.0); HEMOGLOBIN. 9.3 g/dL (14.0-18.0); LYMPHOCYTES % 44.8 % (20.0-50.0); MEAN CORPUSCULAR HEMOGLOBIN 19.1 pg (28.0-32.0); MEAN CORPUSCULAR VOLUME 62.1 fL (80.0-94.0); MEAN PLATELET VOLUME 9.3 fl (7.4-10.4); MONOCYTES % 6.7 % (2.0-8.0); NEUTROPHILS % 45.8 % (40.0-76.0); PLATELET 240 x1000/uL (130-400); RED BLOOD CELL COUNT 4.87 mill/uL (4.7-6.1)
[2019-01-29 07:28] LABS: CHLORIDE 104 mEq/L (98-107)
[2019-01-29] MEDS: INSULIN LISPRO 100 UNITS/ML SUBCUT SCH ×6 (07:50→21:00)
[2019-01-29 08:00] VITALS: BP 129/80
[2019-01-29 08:14] LABS: *AMPHETAMINES SCREEN URINE NEGATIVE (NEGATIVE); *BARBITURATES SCREEN URINE NEGATIVE (NEGATIVE)
[2019-01-29 08:15] LABS: *BENZODIAZEPINES SCREEN URINE NEGATIVE (NEGATIVE); *COCAINE SCREEN URINE NEGATIVE (NEGATIVE); METHADONE URINE SCREEN NEGATIVE (NEGATIVE); OPIATES URINE SCREEN NEGATIVE (NEGATIVE)
[2019-01-29 08:16] LABS: CANNABINOID URINE SCREEN PRESUMTIVE POSITIVE (NEGATIVE); PHENCYCLIDINE URINE SCREEN NEGATIVE (NEGATIVE)
[2019-01-29] MEDS: FERROUS SULFATE 325MG TABLET PO SCH ×3 (09:04→17:50)
[2019-01-29] MEDS: DOCUSATE SODIUM 100MG CAPSULE PO SCH (09:04)
[2019-01-29] MEDS ORDERED: INSULIN GLARGINE UD 100 UNITS/ML SYR SUBCUT SCH ×3 (10:00→22:00)
[2019-01-29 11:43] VITALS: BP 124/66
[2019-01-29] MEDS ORDERED: INSULIN GLARGINE UD 100 UNITS/ML SYR SUBCUT NR (14:00)
[2019-01-29 16:00] VITALS: BP 129/85
[2019-01-29] MEDS ORDERED: INSLIS SUBCUT (16:39)
[2019-01-29 20:00] VITALS: BP 132/87
[2019-01-30] VITALS: BP 140/84
[2019-01-30] MEDS: HYDROCODONE/ACETAMINOPHEN 5/325MG TABLET PO PRN ×2 (01:11→06:43)
[2019-01-30 04:00] VITALS: BP 128/90
[2019-01-30] MEDS: BLOOD SUGAR DIAGNOSTIC STRIP TEST SCH ×2 (05:43→11:44)
[2019-01-30] MEDS: METOCLOPRAMIDE HCL 10MG TABLET PO SCH ×2 (06:00→11:39)
[2019-01-30 08:00] VITALS: BP 133/91
[2019-01-30] MEDS: DOCUSATE SODIUM 100MG CAPSULE PO SCH (08:08)
[2019-01-30] MEDS: FERROUS SULFATE 325MG TABLET PO SCH ×2 (08:08→13:02)
[2019-01-30] MEDS: INSULIN LISPRO 100 UNITS/ML SUBCUT SCH ×2 (08:11→13:06)
[2019-01-30] MEDS ORDERED: INSULIN GLARGINE UD 100 UNITS/ML SYR SUBCUT SCH (10:00)
[2019-01-30] MEDS: CLONIDINE 0.1MG TABLET PO PRN (11:40)
[2019-01-30 11:46] VITALS: BP 149/100
[2019-01-30 13:17] VITALS: BP 124/70
== END 2019-01-30 14:47 | disposition home or self-care (01) | DRG 420 ==
LOC: ER 13:29 → 6EST 16:34 → EDBEDREQTM 19:51 → EDBEDREQSVC 19:51 → ENRESERV 20:57
PROVIDERS: ADMIT Internal Medicine; ATTEND Internal Medicine
DX: E10.10 Type 1 diabetes mellitus with ketoacidosis without coma (principal); E87.5 Hyperkalemia; D50.9 Iron deficiency anemia, unspecified; I10 Essential (primary) hypertension; Z59.0 Homelessness; Z79.4 Long term (current) use of insulin; Z91.19 Patient's noncompliance with other medical treatment and regimen
CPT/HCPCS: 36415; 36600; 80048; 80305; 82010; 82375; 82805; 82962; 83605; 83735; 84100; 96361; 96372; 96374; 96375; 99291; J1815; J2270; J2405; J7030; J7050; J8597

== ENCOUNTER 2019-01-31 07:23 | Inpatient (IN) | payer OTHER ==
[~2019-01-31] VITALS: Ht 175.3 cm; Wt 62.6 kg
[2019-01-31] MEDS ORDERED: SODIUM CHLORIDE 0.9% 1,000 ML IV ONE ×2 (07:48→09:15)
[2019-01-31 08:26] LABS: CHLORIDE 98 mEq/L (98-107)
[2019-01-31 08:43] LABS: BASOPHILS % 0.8 % (0.0-2.0); EOSINOPHILS % 0.2 % (0.0-5.0); HEMATOCRIT. 36.7 % (42.0-52.0); HEMOGLOBIN. 10.9 g/dL (14.0-18.0); LYMPHOCYTES % 15.1 % (20.0-50.0); MEAN CORPUSCULAR HEMOGLOBIN 19.2 pg (28.0-32.0); MEAN CORPUSCULAR VOLUME 64.5 fL (80.0-94.0); MEAN PLATELET VOLUME 9.1 fl (7.4-10.4); MONOCYTES % 7.5 % (2.0-8.0); NEUTROPHILS % 76.4 % (40.0-76.0); PLATELET 307 x1000/uL (130-400); RED BLOOD CELL COUNT 5.69 mill/uL (4.7-6.1); RED CELL DISTRIBUTION WIDTH 20.6 % (11.6-14.6)
[2019-01-31 08:49] LABS: CLARITY URINE CLEAR (CLEAR); COLOR URINE YELLOW (YELLOW); KETONES URINE NEGATIVE (NEGATIVE); LEUKOCYTE ESTERASE URINE NEGATIVE (NEGATIVE); NITRITE URINE NEGATIVE (NEGATIVE); OCCULT BLOOD URINE NEGATIVE (NEGATIVE); PH URINE 6.5 (4.5-8.0); PROTEIN URINE NEGATIVE (NEGATIVE); SPECIFIC GRAVITY URINE 1.036 (1.005-1.030); UROBILINOGEN URINE 0.2 E.U./dL (0.2-1.0)
[2019-01-31 09:06] LABS: BETA HYDROXYBUTYRATE 0.5 mMol/L (0.0-0.3)
[2019-01-31] MEDS ORDERED: INSULIN REGULAR (HUMULIN R) 300UNITS/3ML SUBCUT ONE (09:15)
[2019-01-31 09:23] LABS: PLATELET ESTIMATE NORMAL
[2019-01-31] MEDS ORDERED: ACETAMINOPHEN 325MG TABLET PO PRN (10:15)
[2019-01-31] MEDS ORDERED: IPRATROPIUM/ALBUTEROL 0.5-3(2.5)MG/3ML NEB INH PRN (10:15)
[2019-01-31] MEDS ORDERED: ONDANSETRON HCL 4MG/2ML INJ IV PRN (10:15)
[2019-01-31] MEDS ORDERED: DIPHENHYDRAMINE 50MG/ML VIAL IV PRN (10:15)
[2019-01-31] MEDS ORDERED: MAGNESIUM/ALUMINUM HYDROXIDE/SIMETHICONE 30ML UDC PO PRN (10:15)
[2019-01-31] MEDS: HYDROCODONE/ACETAMINOPHEN 5/325MG TABLET PO PRN ×3 (10:44→20:40)
[2019-01-31 11:24] LABS: PHOSPHORUS 5.2 mg/dL (2.5-4.9)
[2019-01-31] MEDS ORDERED: INSULIN REGULAR (HUMULIN R) 300UNITS/3ML SUBCUT SCH (14:30)
[2019-01-31] MEDS ORDERED: DEXTROSE 50% WATER 50ML SYRINGE IV ONE (17:45)
[2019-01-31 19:20] VITALS: BP 133/93
[2019-01-31 20:00] VITALS: BP 133/93
[2019-01-31] MEDS ORDERED: ENOXAPARIN 40MG/0.4ML SYR SUBCUT SCH (20:00)
[2019-01-31] MEDS ORDERED: DEXTROSE 50% WATER 50ML SYRINGE IV PRN (20:30)
[2019-01-31 21:00] VITALS: BP 120/86
[2019-01-31] MEDS: BLOOD SUGAR DIAGNOSTIC STRIP TEST SCH (21:00)
[2019-01-31] MEDS ORDERED: INSULIN GLARGINE UD 100 UNITS/ML SYR SUBCUT SCH (22:00)
[2019-01-31] MEDS: INSULIN LISPRO 100 UNITS/ML SUBCUT SCH (22:09)
[2019-02-01] VITALS: BP 164/101
[2019-02-01] MEDS: CLONIDINE 0.1MG TABLET PO PRN ×2 (00:34→14:47)
[2019-02-01] MEDS: HYDROCODONE/ACETAMINOPHEN 5/325MG TABLET PO PRN (00:47)
[2019-02-01 02:05] LABS: CREATINE KINASE 80 IU/L (39-308); CREATINE KINASE MB FRACTION < 1.0 ng/mL (0.5-3.6)
[2019-02-01 04:00] VITALS: BP 114/78
[2019-02-01 06:06] LABS: BASOPHILS % 1.3 % (0.0-2.0); EOSINOPHILS % 1.9 % (0.0-5.0); HEMATOCRIT. 31.9 % (42.0-52.0); HEMOGLOBIN. 9.6 g/dL (14.0-18.0); LYMPHOCYTES % 49.3 % (20.0-50.0); MEAN CORPUSCULAR HEMOGLOBIN 18.9 pg (28.0-32.0); MEAN CORPUSCULAR VOLUME 62.5 fL (80.0-94.0); MEAN PLATELET VOLUME 9.1 fl (7.4-10.4); MONOCYTES % 9.7 % (2.0-8.0); NEUTROPHILS % 37.8 % (40.0-76.0); PLATELET 250 x1000/uL (130-400); RED CELL DISTRIBUTION WIDTH 20.1 % (11.6-14.6)
[2019-02-01 06:18] LABS: CHLORIDE 105 mEq/L (98-107)
[2019-02-01 06:25] LABS: LDL CHOLESTEROL 63 mg/dL (5-100)
[2019-02-01 06:26] LABS: CREATINE KINASE 67 IU/L (39-308); HDL CHOLESTEROL 39 mg/dL (40-59)
[2019-02-01 06:29] LABS: CREATINE KINASE MB FRACTION < 1.0 ng/mL (0.5-3.6)
[2019-02-01] MEDS: BLOOD SUGAR DIAGNOSTIC STRIP TEST SCH ×3 (06:46→17:41)
[2019-02-01] MEDS: INSULIN LISPRO 100 UNITS/ML SUBCUT SCH ×3 (06:59→17:50)
[2019-02-01 08:00] VITALS: BP 126/73
[2019-02-01] MEDS ORDERED: INSULIN GLARGINE UD 100 UNITS/ML SYR SUBCUT SCH (10:00)
[2019-02-01 12:00] VITALS: BP 160/99
[2019-02-01 17:11] VITALS: BP 132/88
== END 2019-02-01 20:00 | disposition home or self-care (01) | DRG 420 ==
LOC: ER 07:23 → 6EST 09:46 → EDBEDREQ 09:50 → EDBEDREQTM 09:50 → ENRESERV 15:59
PROVIDERS: ADMIT Internal Medicine; ATTEND Internal Medicine
DX: E10.10 Type 1 diabetes mellitus with ketoacidosis without coma (principal); D50.9 Iron deficiency anemia, unspecified; R74.0 Nonspecific elevation of levels of transaminase and lactic acid dehydrogenase [LDH]; Z59.0 Homelessness; I10 Essential (primary) hypertension; Z79.4 Long term (current) use of insulin; Z91.19 Patient's noncompliance with other medical treatment and regimen
CPT/HCPCS: 36415; 80061; 82010; 82550; 82553; 82962; 83605; 83735; 84100; 84443; 93970; 96361; 96372; 96374; 97161; 97165; 99285; J1815; J7030

== ENCOUNTER 2019-02-06 11:46 | Inpatient (IN) | payer MEDICAID ==
[2019-02-06] VITALS (9 sets, daily range): BP systolic 97–140; BP diastolic 58–94
[~2019-02-06] VITALS: Ht 175.3 cm; Wt 60.3 kg
[2019-02-06] MEDS ORDERED: SODIUM CHLORIDE 0.9% 1,000 ML IV ONE ×2 (12:31→14:30)
[2019-02-06] MEDS ORDERED: ONDANSETRON HCL 4MG/2ML INJ IV STA (12:31)
[2019-02-06 13:23] LABS: BG BASE EXCESS -1.7 mmol/L (-2.0-2.0); BG CARBOXYHEMOGLOBIN 2.9 % (0.5-1.5); BG DEOXYHEMOGLOBIN 4.5 % (0.0-5.0); BG FRACTION INSPIRED OXYGEN 21; BG METHEMOGLOBIN 0.6 % (0.0-1.5); BG OXYGEN SATURATION 95.3 % (92.0-98.5); BG PCO2 44.4 mmHg (35.0-45.0); BG PO2 84.3 mmHg (75.0-100.0); BG SAMPLE SITE RIGHT RADIAL; BG TOTAL HEMOGLOBIN 12.4 g/dL (12.0-18.0); BG VENT MODE ROOM AIR
[2019-02-06 13:26] LABS: BASOPHILS % 1.9 % (0.0-2.0); EOSINOPHILS % 0.5 % (0.0-5.0); HEMATOCRIT. 41.5 % (42.0-52.0); HEMOGLOBIN. 12.2 g/dL (14.0-18.0); LYMPHOCYTES % 31.8 % (20.0-50.0); MEAN CORPUSCULAR VOLUME 64.9 fL (80.0-94.0); MEAN PLATELET VOLUME 9.1 fl (7.4-10.4); NEUTROPHILS % 59.8 % (40.0-76.0); PLATELET 248 x1000/uL (130-400); RED CELL DISTRIBUTION WIDTH 21.2 % (11.6-14.6)
[2019-02-06 13:30] LABS: CHLORIDE 88 mEq/L (98-107)
[2019-02-06 13:38] LABS: BETA HYDROXYBUTYRATE 3.9 mMol/L (0.0-0.3)
[2019-02-06 13:47] LABS: PLATELET ESTIMATE NORMAL
[2019-02-06 13:52] LABS: CLARITY URINE CLEAR (CLEAR); COLOR URINE YELLOW (YELLOW); KETONES URINE 2+ (NEGATIVE); LEUKOCYTE ESTERASE URINE NEGATIVE (NEGATIVE); NITRITE URINE NEGATIVE (NEGATIVE); OCCULT BLOOD URINE NEGATIVE (NEGATIVE); PROTEIN URINE NEGATIVE (NEGATIVE); SPECIFIC GRAVITY URINE 1.028 (1.005-1.030); UROBILINOGEN URINE 0.2 E.U./dL (0.2-1.0)
[2019-02-06] MEDS ORDERED: INSULIN REGULAR (HUMULIN R) 300UNITS/3ML SUBCUT NR (14:00)
[2019-02-06] MEDS ORDERED: INSULIN REGULAR (DRIP) 100 UNITS in SODIUM CHLORIDE 0.9% 99 ML IV ONE ×4 (14:30)
[2019-02-06 14:57] LABS: PHOSPHORUS 6.9 mg/dL (2.5-4.9)
[2019-02-06 16:09] LABS: CHLORIDE 101 mEq/L (98-107)
[2019-02-06] MEDS ORDERED: DEXTROSE 50% WATER 50ML SYRINGE IV PRN ×2 (17:15)
[2019-02-06] MEDS ORDERED: ONDANSETRON HCL 4MG/2ML INJ IV PRN (17:15)
[2019-02-06] MEDS: BLOOD SUGAR DIAGNOSTIC STRIP TEST SCH ×7 (17:20→23:06)
[2019-02-06] MEDS ORDERED: INSULIN REGULAR (DRIP) 100 UNITS in SODIUM CHLORIDE 0.9% 100 ML IV SCH (17:30)
[2019-02-06] MEDS: SODIUM CHLORIDE 0.9% 1,000 ML IV SCH (17:41)
[2019-02-06] MEDS: MORPHINE SULFATE 4 MG/ML CPJ (NOT FOR IM USE) IV PRN ×2 (17:41→21:39)
[2019-02-06] MEDS: PANTOPRAZOLE SODIUM 40 MG/VIAL IV SCH (17:41)
[2019-02-06] MEDS: ENOXAPARIN 40MG/0.4ML SYR SUBCUT SCH (17:42)
[2019-02-06 20:22] LABS: CHLORIDE 107 mEq/L (98-107)
[2019-02-07] VITALS (25 sets, daily range): BP systolic 88–155; BP diastolic 34–113
[2019-02-07 00:36] LABS: CHLORIDE 108 mEq/L (98-107)
[2019-02-07] MEDS: BLOOD SUGAR DIAGNOSTIC STRIP TEST SCH ×13 (01:05→21:03)
[2019-02-07] MEDS: SODIUM CHLORIDE 0.9% 1,000 ML IV SCH ×2 (01:37→09:36)
[2019-02-07] MEDS: MORPHINE SULFATE 4 MG/ML CPJ (NOT FOR IM USE) IV PRN ×5 (03:05→21:03)
[2019-02-07 05:31] LABS: CHLORIDE 107 mEq/L (98-107)
[2019-02-07 07:27] LABS: HEMATOCRIT. 33.4 % (42.0-52.0); HEMOGLOBIN. 10.3 g/dL (14.0-18.0); MEAN CORPUSCULAR HEMOGLOBIN 19.2 pg (28.0-32.0); MEAN PLATELET VOLUME 9.3 fl (7.4-10.4); PLATELET 288 x1000/uL (130-400); RED BLOOD CELL COUNT 5.38 mill/uL (4.7-6.1); RED CELL DISTRIBUTION WIDTH 20.4 % (11.6-14.6)
[2019-02-07 08:29] LABS: PLATELET ESTIMATE NORMAL
[2019-02-07] MEDS: PANTOPRAZOLE SODIUM 40 MG/VIAL IV SCH (08:41)
[2019-02-07 08:52] LABS: CHLORIDE 108 mEq/L (98-107)
[2019-02-07] MEDS: DEXT 5%/0.45% NACL KCL 20MEQ/L 1,000 ML IV SCH ×2 (10:48→19:35)
[2019-02-07] MEDS ORDERED: DEXTROSE 50% WATER 50ML SYRINGE IV PRN (11:00)
[2019-02-07] MEDS: INSULIN LISPRO 100 UNITS/ML SUBCUT SCH ×4 (12:00→21:04)
[2019-02-07] MEDS ORDERED: INSULIN GLARGINE UD 100 UNITS/ML SYR SUBCUT SCH (12:00)
[2019-02-07 13:02] LABS: CHLORIDE 107 mEq/L (98-107)
[2019-02-07] MEDS: ENOXAPARIN 40MG/0.4ML SYR SUBCUT SCH (16:47)
[2019-02-08] MEDS: MORPHINE SULFATE 4 MG/ML CPJ (NOT FOR IM USE) IV PRN ×3 (01:40→13:30)
[2019-02-08] MEDS: DEXT 5%/0.45% NACL KCL 20MEQ/L 1,000 ML IV SCH (03:36)
[2019-02-08 04:00] VITALS: BP 143/82
[2019-02-08 06:31] LABS: HEMATOCRIT. 31.5 % (42.0-52.0); HEMOGLOBIN. 9.8 g/dL (14.0-18.0); MEAN CORPUSCULAR HEMOGLOBIN 19.2 pg (28.0-32.0); MEAN CORPUSCULAR VOLUME 61.8 fL (80.0-94.0); PLATELET 282 x1000/uL (130-400); RED BLOOD CELL COUNT 5.09 mill/uL (4.7-6.1); RED CELL DISTRIBUTION WIDTH 20.1 % (11.6-14.6)
[2019-02-08] MEDS: INSULIN LISPRO 100 UNITS/ML SUBCUT SCH ×4 (06:37→13:26)
[2019-02-08] MEDS: BLOOD SUGAR DIAGNOSTIC STRIP TEST SCH ×2 (06:37→13:04)
[2019-02-08 07:54] LABS: CHLORIDE 107 mEq/L (98-107)
[2019-02-08 08:00] VITALS: BP 122/69
[2019-02-08] MEDS: PANTOPRAZOLE SODIUM 40 MG/VIAL IV SCH (09:00)
[2019-02-08 09:56] LABS: PLATELET ESTIMATE NORMAL
[2019-02-08] MEDS ORDERED: INSULIN GLARGINE UD 100 UNITS/ML SYR SUBCUT SCH ×2 (10:00→22:00)
[2019-02-08 13:03] VITALS: BP 129/84
[2019-02-08 14:52] VITALS: BP 142/91
[2019-02-08 15:31] VITALS: BP 142/91
[2019-02-08] MEDS: ENOXAPARIN 40MG/0.4ML SYR SUBCUT SCH (17:00)
== END 2019-02-08 17:40 | disposition home or self-care (01) | DRG 420 ==
LOC: ER 11:46 → MICUNO 14:27 → ENRESERV 15:31 → 8WST 02-07 23:23
PROVIDERS: ADMIT Internal Medicine; ATTEND Internal Medicine
DX: E10.10 Type 1 diabetes mellitus with ketoacidosis without coma (principal); K31.84 Gastroparesis; E10.43 Type 1 diabetes mellitus with diabetic autonomic (poly)neuropathy; K31.9 Disease of stomach and duodenum, unspecified; D63.8 Anemia in other chronic diseases classified elsewhere; Z91.19 Patient's noncompliance with other medical treatment and regimen; Z79.4 Long term (current) use of insulin; Z59.0 Homelessness
CPT/HCPCS: 36415; 36600; 80048; 82010; 82375; 82805; 82962; 83735; 84100; 96374; 96375; 99291; C1893; C9113; J1650; J1815; J2270; J2405; J7030; J7050

== ENCOUNTER 2019-08-09 07:17 | Emergency (ER) | payer MEDICAID ==
[~2019-08-09] VITALS: Ht 175.3 cm; Wt 66.0 kg
[2019-08-09] MEDS ORDERED: SODIUM CHLORIDE 0.9% 1,000 ML IV ONE (08:37)
[2019-08-09] MEDS ORDERED: KETOROLAC 30MG/ML VIAL IV STA (08:37)
[2019-08-09] MEDS ORDERED: ONDANSETRON HCL 4MG/2ML INJ IV STA (08:37)
[2019-08-09 08:48] VITALS: BP 126/77
[2019-08-09 09:06] LABS: BASOPHILS % 2.6 % (0.0-2.0); EOSINOPHILS % 0.8 % (0.0-5.0); HEMATOCRIT. 40.5 % (42.0-52.0); HEMOGLOBIN. 12.5 g/dL (14.0-18.0); LYMPHOCYTES % 33.2 % (20.0-50.0); MEAN CORPUSCULAR HEMOGLOBIN 20.3 pg (28.0-32.0); MEAN CORPUSCULAR VOLUME 66.2 fL (80.0-94.0); MEAN PLATELET VOLUME 9.1 fl (7.4-10.4); NEUTROPHILS % 54.4 % (40.0-76.0); PLATELET 273 x1000/uL (130-400); RED BLOOD CELL COUNT 6.13 mill/uL (4.7-6.1); RED CELL DISTRIBUTION WIDTH 21.9 % (11.6-14.6)
[2019-08-09 09:14] LABS: CHLORIDE 98 mEq/L (98-107)
[2019-08-09 09:20] LABS: PLATELET ESTIMATE NORMAL
== END 2019-08-09 09:20 | disposition left against medical advice (07) ==
LOC: ER 07:17
DX: R10.30 Lower abdominal pain, unspecified (principal); F12.10 Cannabis abuse, uncomplicated; E11.9 Type 2 diabetes mellitus without complications; Z79.899 Other long term (current) drug therapy; Z79.4 Long term (current) use of insulin
CPT/HCPCS: 36415; 74176; 80053; 82962; 85025; 96361; 96374; 96375; 99284; J1885; J2405; J7030

== ENCOUNTER 2020-01-13 03:21 | Emergency (ER) | payer MEDICAID ==
[~2020-01-13] VITALS: Ht 175.3 cm; Wt 64.0 kg
[2020-01-13] MEDS ORDERED: SODIUM CHLORIDE 0.9% 1,000 ML IV ONE (04:35)
[2020-01-13] MEDS ORDERED: ONDANSETRON HCL 4MG/2ML INJ IV STA (04:35)
[2020-01-13 05:01] LABS: EOSINOPHILS % 0.8 % (0.0-5.0); HEMATOCRIT. 34.5 % (42.0-52.0); HEMOGLOBIN. 10.7 g/dL (14.0-18.0); LYMPHOCYTES % 33.2 % (20.0-50.0); MEAN CORPUSCULAR HEMOGLOBIN 19.9 pg (28.0-32.0); MEAN CORPUSCULAR VOLUME 64.6 fL (80.0-94.0); MEAN PLATELET VOLUME 8.5 fl (7.4-10.4); MONOCYTES % 7.8 % (2.0-8.0); NEUTROPHILS % 56.2 % (40.0-76.0); PLATELET 449 x1000/uL (130-400); RED BLOOD CELL COUNT 5.35 mill/uL (4.7-6.1); RED CELL DISTRIBUTION WIDTH 20.5 % (11.6-14.6)
[2020-01-13 05:07] LABS: CHLORIDE 106 mEq/L (98-107)
[2020-01-13 05:09] LABS: PROTHROMBIN TIME 10.6 sec (9.6-11.0)
[2020-01-13 05:13] LABS: BETA HYDROXYBUTYRATE 0.2 mMol/L (0.0-0.3); PLATELET ESTIMATE NORMAL
[2020-01-13] MEDS ORDERED: FAMOTIDINE 20MG/2ML VIAL IV SCH (05:30)
[2020-01-13] MEDS ORDERED: INSULIN REGULAR (HUMULIN R) 300UNITS/3ML SUBCUT SCH (06:15)
[2020-01-13 06:58] LABS: CLARITY URINE CLEAR (CLEAR); COLOR URINE YELLOW (YELLOW); KETONES URINE NEGATIVE (NEGATIVE); LEUKOCYTE ESTERASE URINE NEGATIVE (NEGATIVE); NITRITE URINE NEGATIVE (NEGATIVE); OCCULT BLOOD URINE TRACE (NEGATIVE); PH URINE 5.5 (4.5-8.0); PROTEIN URINE NEGATIVE (NEGATIVE); UROBILINOGEN URINE 0.2 E.U./dL (0.2-1.0)
[2020-01-13 08:05] VITALS: BP 140/89
== END 2020-01-13 09:59 | disposition home or self-care (01) ==
LOC: ER 03:21
DX: R10.13 Epigastric pain (principal); R11.2 Nausea with vomiting, unspecified; E10.9 Type 1 diabetes mellitus without complications; Z79.4 Long term (current) use of insulin
CPT/HCPCS: 36415; 80053; 81003; 82010; 82962; 83690; 85025; 85610; 96361; 96372; 96374; 96375; 99285; J1815; J2405; J3490; J7030

== ENCOUNTER 2020-01-31 10:23 | Emergency (ER) | payer MEDICAID ==
[~2020-01-31] VITALS: Ht 175.3 cm; Wt 64.0 kg
[2020-01-31] MEDS ORDERED: ONDANSETRON HCL 4MG/2ML INJ IV STA (11:04)
[2020-01-31] MEDS ORDERED: KETOROLAC 30MG/ML VIAL IV STA (11:04)
[2020-01-31] MEDS ORDERED: MAGNESIUM/ALUMINUM HYDROXIDE/SIMETHICONE 30ML UDC PO STA (11:04)
[2020-01-31] MEDS ORDERED: SODIUM CHLORIDE 0.9% 1,000 ML IV ONE ×2 (11:04→14:00)
[2020-01-31 12:44] LABS: BASOPHILS % 1.9 % (0.0-2.0); HEMATOCRIT. 35.9 % (42.0-52.0); LYMPHOCYTES % 13.5 % (20.0-50.0); MEAN CORPUSCULAR HEMOGLOBIN 19.4 pg (28.0-32.0); MEAN CORPUSCULAR VOLUME 63.4 fL (80.0-94.0); MEAN PLATELET VOLUME 8.8 fl (7.4-10.4); MONOCYTES % 6.2 % (2.0-8.0); NEUTROPHILS % 78.4 % (40.0-76.0); PLATELET 437 x1000/uL (130-400); RED BLOOD CELL COUNT 5.67 mill/uL (4.7-6.1); RED CELL DISTRIBUTION WIDTH 22.3 % (11.6-14.6)
[2020-01-31 12:51] LABS: CHLORIDE 98 mEq/L (98-107); INR 0.9
[2020-01-31 13:05] LABS: PLATELET ESTIMATE INCREASED
[2020-01-31 13:29] LABS: CLARITY URINE CLEAR (CLEAR); COLOR URINE YELLOW (YELLOW); KETONES URINE 3+ (NEGATIVE); LEUKOCYTE ESTERASE URINE NEGATIVE (NEGATIVE); NITRITE URINE NEGATIVE (NEGATIVE); OCCULT BLOOD URINE NEGATIVE (NEGATIVE); PROTEIN URINE NEGATIVE (NEGATIVE); SPECIFIC GRAVITY URINE 1.042 (1.005-1.030); UROBILINOGEN URINE 0.2 E.U./dL (0.2-1.0)
[2020-01-31 13:44] LABS: *AMPHETAMINES SCREEN URINE NEGATIVE (NEGATIVE); *BARBITURATES SCREEN URINE NEGATIVE (NEGATIVE); *BENZODIAZEPINES SCREEN URINE NEGATIVE (NEGATIVE); *COCAINE SCREEN URINE NEGATIVE (NEGATIVE)
[2020-01-31 13:45] LABS: CANNABINOID URINE SCREEN PRESUMTIVE POSITIVE (NEGATIVE); METHADONE URINE SCREEN NEGATIVE (NEGATIVE); OPIATES URINE SCREEN NEGATIVE (NEGATIVE); PHENCYCLIDINE URINE SCREEN NEGATIVE (NEGATIVE)
[2020-01-31] MEDS ORDERED: MORPHINE SULFATE 2 MG/ML CPJ (NOT FOR IM USE) IV ONE (14:30)
[2020-01-31 15:24] VITALS: BP 138/90
== END 2020-01-31 15:27 | disposition home or self-care (01) ==
LOC: ER 10:23
DX: R10.33 Periumbilical pain (principal); E11.65 Type 2 diabetes mellitus with hyperglycemia; Z79.4 Long term (current) use of insulin; Z79.899 Other long term (current) drug therapy
CPT/HCPCS: 36415; 74176; 80053; 80305; 81003; 82962; 83690; 85025; 85610; 96361; 96374; 96375; 99285; J1885; J2270; J2405; J7030

== ENCOUNTER 2020-01-31 20:23 | Inpatient (IN) | payer MEDICAID ==
[~2020-01-31] VITALS: Ht 175.3 cm; Wt 62.6 kg
[2020-01-31] MEDS ORDERED: ONDANSETRON HCL 4MG/2ML INJ IV STA (23:04)
[2020-01-31] MEDS ORDERED: SODIUM CHLORIDE 0.9% 1,000 ML IV ONE (23:04)
[2020-01-31] MEDS ORDERED: FAMOTIDINE 20MG/2ML VIAL IV STA (23:04)
[2020-02-01] LABS: BASOPHILS % 1.2 % (0.0-2.0); HEMATOCRIT. 40.7 % (42.0-52.0); HEMOGLOBIN. 11.7 g/dL (14.0-18.0); LYMPHOCYTES % 8.3 % (20.0-50.0); MEAN CORPUSCULAR HEMOGLOBIN 19.6 pg (28.0-32.0); MEAN CORPUSCULAR VOLUME 68.3 fL (80.0-94.0); MEAN PLATELET VOLUME 8.7 fl (7.4-10.4); MONOCYTES % 4.1 % (2.0-8.0); NEUTROPHILS % 86.4 % (40.0-76.0); PLATELET 543 x1000/uL (130-400); RED BLOOD CELL COUNT 5.96 mill/uL (4.7-6.1); RED CELL DISTRIBUTION WIDTH 23.1 % (11.6-14.6)
[2020-02-01 00:05] LABS: CHLORIDE 97 mEq/L (98-107)
[2020-02-01 00:09] LABS: ETHANOL BLOOD < 10 mg/dL
[2020-02-01] MEDS ORDERED: INSULIN REGULAR (DRIP) 100 UNITS in SODIUM CHLORIDE 0.9% 99 ML IV NR ×4 (01:30)
[2020-02-01] MEDS ORDERED: LABETALOL HCL 20MG/4ML CARPUJECT IV ONE (02:00)
[2020-02-01] MEDS ORDERED: KETOROLAC 15MG/ML VIAL IV NR (02:15)
[2020-02-01] MEDS ORDERED: DICYCLOMINE HCL 10MG CAPSULE PO ONE (02:15)
[2020-02-01] MEDS ORDERED: LABETALOL 5MG/ML SYR 20 MG/4 ML SYRINGE IV NR (02:30)
[2020-02-01 02:52] LABS: CLARITY URINE CLEAR (CLEAR); COLOR URINE YELLOW (YELLOW); KETONES URINE 3+ (NEGATIVE); LEUKOCYTE ESTERASE URINE NEGATIVE (NEGATIVE); NITRITE URINE NEGATIVE (NEGATIVE); OCCULT BLOOD URINE NEGATIVE (NEGATIVE); PH URINE 5.5 (4.5-8.0); PROTEIN URINE TRACE (NEGATIVE); SPECIFIC GRAVITY URINE 1.027 (1.005-1.030); UROBILINOGEN URINE 0.2 E.U./dL (0.2-1.0)
[2020-02-01 03:16] LABS: *AMPHETAMINES SCREEN URINE NEGATIVE (NEGATIVE); *BARBITURATES SCREEN URINE NEGATIVE (NEGATIVE); *BENZODIAZEPINES SCREEN URINE NEGATIVE (NEGATIVE); *COCAINE SCREEN URINE NEGATIVE (NEGATIVE); METHADONE URINE SCREEN NEGATIVE (NEGATIVE); OPIATES URINE SCREEN NEGATIVE (NEGATIVE); PHENCYCLIDINE URINE SCREEN NEGATIVE (NEGATIVE)
[2020-02-01 03:17] LABS: CANNABINOID URINE SCREEN PRESUMTIVE POSITIVE (NEGATIVE)
[2020-02-01] MEDS ORDERED: INSULIN REGULAR (DRIP) 100 UNITS in SODIUM CHLORIDE 0.9% 100 ML IV SCH (04:39)
[2020-02-01 04:40] LABS: CHLORIDE 96 mEq/L (98-107)
[2020-02-01] MEDS ORDERED: DEXTROSE 50% WATER 50ML SYRINGE IV PRN ×3 (04:45→17:15)
[2020-02-01] MEDS ORDERED: MORPHINE SULFATE 2 MG/ML CPJ (NOT FOR IM USE) IV ONE (04:45)
[2020-02-01] MEDS ORDERED: ONDANSETRON HCL 4MG/2ML INJ IV PRN (04:45)
[2020-02-01] MEDS ORDERED: INSULIN REGULAR (HUMULIN R) 300UNITS/3ML IV ONE (05:30)
[2020-02-01] MEDS ORDERED: SODIUM CHLORIDE 0.9% 1,000 ML IV ONE (05:30)
[2020-02-01] MEDS ORDERED: ALBUTEROL (0.083%) 2.5MG/3ML NEB HHN ONE (05:30)
[2020-02-01] MEDS ORDERED: SODIUM BICARBONATE 8.4% 1 MEQ/ML 50ML SYR IV ONE (05:30)
[2020-02-01] MEDS ORDERED: CALCIUM CHLORIDE 1GM/10ML SYR IV ONE (05:30)
[2020-02-01 05:36] LABS: CHLORIDE 103 mEq/L (98-107); HEMATOCRIT. 38.5 % (42.0-52.0); HEMOGLOBIN. 10.3 g/dL (14.0-18.0); MEAN CORPUSCULAR HEMOGLOBIN 19.3 pg (28.0-32.0); MEAN CORPUSCULAR VOLUME 72.1 fL (80.0-94.0); MEAN PLATELET VOLUME 8.8 fl (7.4-10.4); PLATELET 468 x1000/uL (130-400); RED BLOOD CELL COUNT 5.35 mill/uL (4.7-6.1); RED CELL DISTRIBUTION WIDTH 23.4 % (11.6-14.6)
[2020-02-01 05:43] LABS: PHOSPHORUS 6.2 mg/dL (2.5-4.9)
[2020-02-01] MEDS: MORPHINE SULFATE 2 MG/ML CPJ (NOT FOR IM USE) IV PRN ×2 (05:54→15:03)
[2020-02-01 07:01] LABS: PLATELET ESTIMATE INCREASED
[2020-02-01] MEDS: SODIUM CHLORIDE 0.9% 1,000 ML IV SCH ×2 (07:30→09:59)
[2020-02-01] MEDS: BLOOD SUGAR DIAGNOSTIC STRIP TEST SCH ×15 (07:30→21:48)
[2020-02-01 07:45] LABS: CHLORIDE 106 mEq/L (98-107)
[2020-02-01 07:58] LABS: CHLORIDE 110 mEq/L (98-107)
[2020-02-01] MEDS: PANTOPRAZOLE SODIUM 40 MG/VIAL IV SCH (10:36)
[2020-02-01] MEDS: DEXT 5%/0.45% NACL 1000ML 1,000 ML IV SCH ×2 (13:00→14:08)
[2020-02-01 15:12] LABS: CHLORIDE 111 mEq/L (98-107)
[2020-02-01] MEDS: INSULIN LISPRO 100 UNITS/ML SUBCUT SCH (18:20)
[2020-02-01] MEDS ORDERED: INSULIN GLARGINE UD 100 UNITS/ML SYR SUBCUT SCH (22:00)
[2020-02-01] MEDS ORDERED: INSULIN LISPRO 100 UNITS/ML SUBCUT NR (23:45)
[2020-02-01] MEDS ORDERED: SODIUM CHLORIDE 0.9% 500 ML IV NR (23:45)
[2020-02-01] MEDS: INSULIN GLARGINE UD 100 UNITS/ML SYR SUBCUT SCH (23:47)
[2020-02-02] MEDS: SODIUM CHLORIDE 0.9% 1,000 ML IV SCH ×3 (00:30→22:02)
[2020-02-02] MEDS: KETOROLAC 15MG/ML VIAL IV PRN ×3 (05:40→16:45)
[2020-02-02 06:12] VITALS: BP 157/99
[2020-02-02 06:30] VITALS: BP 157/99
[2020-02-02] MEDS: BLOOD SUGAR DIAGNOSTIC STRIP TEST SCH ×4 (07:40→21:27)
[2020-02-02 08:00] VITALS: BP 143/91
[2020-02-02] MEDS: PANTOPRAZOLE SODIUM 40 MG/VIAL IV SCH (08:18)
[2020-02-02] MEDS: ENOXAPARIN 40MG/0.4ML SYR SUBCUT SCH (08:20)
[2020-02-02] MEDS: INSULIN LISPRO 100 UNITS/ML SUBCUT SCH ×4 (08:51→22:01)
[2020-02-02 11:08] LABS: BASOPHILS % 0.6 % (0.0-2.0); HEMATOCRIT. 33.2 % (42.0-52.0); HEMOGLOBIN. 9.9 g/dL (14.0-18.0); LYMPHOCYTES % 9.7 % (20.0-50.0); MEAN CORPUSCULAR HEMOGLOBIN 19.2 pg (28.0-32.0); MEAN CORPUSCULAR VOLUME 64.5 fL (80.0-94.0); MEAN PLATELET VOLUME 8.6 fl (7.4-10.4); MONOCYTES % 6.1 % (2.0-8.0); NEUTROPHILS % 83.6 % (40.0-76.0); PLATELET 486 x1000/uL (130-400); RED BLOOD CELL COUNT 5.14 mill/uL (4.7-6.1); RED CELL DISTRIBUTION WIDTH 22.5 % (11.6-14.6)
[2020-02-02 11:12] LABS: CHLORIDE 113 mEq/L (98-107)
[2020-02-02 12:00] VITALS: BP 147/95
[2020-02-02 16:00] VITALS: BP 144/95
[2020-02-02] MEDS ORDERED: HYDROCODONE/ACETAMINOPHEN 5/325MG TABLET PO PRN (17:15)
[2020-02-02 20:00] VITALS: BP 137/93
[2020-02-02] MEDS: INSULIN GLARGINE UD 100 UNITS/ML SYR SUBCUT SCH (22:55)
[2020-02-03] VITALS: BP 137/86
[2020-02-03 04:00] VITALS: BP 130/96
[2020-02-03] MEDS: SODIUM CHLORIDE 0.9% 1,000 ML IV SCH ×2 (06:04→15:43)
[2020-02-03] MEDS: BLOOD SUGAR DIAGNOSTIC STRIP TEST SCH ×4 (06:39→20:49)
[2020-02-03] MEDS: INSULIN LISPRO 100 UNITS/ML SUBCUT SCH ×4 (07:40→20:49)
[2020-02-03] MEDS: FAMOTIDINE 20MG/2ML VIAL IV SCH ×2 (08:28→20:49)
[2020-02-03] MEDS: ENOXAPARIN 40MG/0.4ML SYR SUBCUT SCH (08:28)
[2020-02-03] MEDS: INSULIN GLARGINE UD 100 UNITS/ML SYR SUBCUT SCH ×2 (10:12→21:21)
[2020-02-03 11:52] VITALS: BP 141/92
[2020-02-03 15:17] VITALS: BP_SYST 141; BP_SYST 146; BP_DIAS 105; BP_DIAS 92
[2020-02-03 16:00] VITALS: BP 146/108
[2020-02-03 20:00] VITALS: BP 135/96
[2020-02-04] VITALS: BP 138/86
[2020-02-04] MEDS: SODIUM CHLORIDE 0.9% 1,000 ML IV SCH ×2 (01:49→11:57)
[2020-02-04 04:00] VITALS: BP 131/98
[2020-02-04] MEDS: BLOOD SUGAR DIAGNOSTIC STRIP TEST SCH ×3 (05:54→17:45)
[2020-02-04 08:00] VITALS: BP 152/110
[2020-02-04] MEDS: INSULIN LISPRO 100 UNITS/ML SUBCUT SCH ×3 (08:10→17:45)
[2020-02-04] MEDS: FAMOTIDINE 20MG/2ML VIAL IV SCH (08:53)
[2020-02-04] MEDS: ENOXAPARIN 40MG/0.4ML SYR SUBCUT SCH (09:00)
[2020-02-04 12:00] VITALS: BP 146/105
[2020-02-04] MEDS ORDERED: INSULIN GLARGINE UD 100 UNITS/ML SYR SUBCUT SCH (12:00)
[2020-02-04] MEDS ORDERED: AMLODIPINE 5MG TABLET PO SCH (13:30)
[2020-02-04 16:00] VITALS: BP 138/90
== END 2020-02-04 18:15 | disposition home or self-care (01) | DRG 420 ==
LOC: ER 20:23 → EDBEDREQ 02-01 05:54 → EDBEDREQSVC 02-01 18:15 → EDBEDREQTM 02-01 19:53 → EDBEDREQSVC 02-02 03:50 → ENRESERV 02-02 04:00 → EDBEDREQTM 02-02 04:02 → EDBEDREQSVC 02-02 04:02 → 6EST 02-02 04:27 → 7WST 02-02 06:54
PROVIDERS: ADMIT Internal Medicine; ATTEND Internal Medicine
DX: E11.10 Type 2 diabetes mellitus with ketoacidosis without coma (principal); E87.8 Other disorders of electrolyte and fluid balance, not elsewhere classified; E87.5 Hyperkalemia; D64.9 Anemia, unspecified; E87.1 Hypo-osmolality and hyponatremia; F12.10 Cannabis abuse, uncomplicated; Z79.4 Long term (current) use of insulin; Z79.899 Other long term (current) drug therapy; Z91.19 Patient's noncompliance with other medical treatment and regimen
CPT/HCPCS: 36415; 71045; 80048; 80053; 80320; 82962; 83605; 85025; 99291; C9113; J1650; J1815; J1885; J2270; J2405; J3490; J7030; J7050; G0480

== ENCOUNTER 2020-11-09 13:07 | Emergency (ER) | payer MEDICAID ==
[~2020-11-09] VITALS: Ht 175.3 cm; Wt 63.0 kg
[~2020-11-09 13:07] MED LIST changes: +INSU100I28 SQ
[2020-11-09] MEDS ORDERED: DICYCLOMINE 10 MG/5 ML ORAL SYR PO STA (14:32)
[2020-11-09] MEDS ORDERED: MAGNESIUM/ALUMINUM HYDROXIDE/SIMETHICONE 30ML UDC PO STA (14:32)
[2020-11-09] MEDS ORDERED: VISCOUS LIDOCAINE 2% 15 ML UDC PO STA (14:32)
[2020-11-09 14:40] LABS: HEMATOCRIT. 28.5 % (42.0-52.0); HEMOGLOBIN. 8.4 g/dL (14.0-18.0); MEAN CORPUSCULAR VOLUME 64.5 fL (80.0-94.0); MEAN PLATELET VOLUME 8.6 fl (7.4-10.4); PLATELET 582 x1000/uL (130-400); RED BLOOD CELL COUNT 4.42 mill/uL (4.7-6.1); RED CELL DISTRIBUTION WIDTH 36.4 % (11.6-14.6)
[2020-11-09 14:44] LABS: CHLORIDE 95 mEq/L (98-107)
[2020-11-09 14:50] LABS: ETHANOL BLOOD < 10 mg/dL
[2020-11-09 14:53] LABS: BETA HYDROXYBUTYRATE 0.2 mMol/L (0.0-0.3)
[2020-11-09] MEDS ORDERED: INSULIN REGULAR (HUMULIN R) 300UNITS/3ML VIAL SUBCUT ONE (15:15)
[2020-11-09 16:52] LABS: PLATELET ESTIMATE MARKEDLY INCREASED
[2020-11-09 16:57] VITALS: BP 121/71
== END 2020-11-09 16:58 | disposition home or self-care (01) ==
LOC: ER 13:07
DX: E11.65 Type 2 diabetes mellitus with hyperglycemia (principal); K59.00 Constipation, unspecified; R16.0 Hepatomegaly, not elsewhere classified; R03.0 Elevated blood-pressure reading, without diagnosis of hypertension; Z79.4 Long term (current) use of insulin
CPT/HCPCS: 36415; 74176; 80053; 80320; 82010; 82962; 83690; 85025; 93005; 96372; 99285; J1815; G0480